=== PATIENT | female | born 1935 | race Caucasian/White ===

== ENCOUNTER 2020-07-13 01:40 | Inpatient (IN) | payer MEDICARE, SELFPAY ==
[2020-07-13 01:51] VITALS: BP 158/59; PULSE 70; RESP 16; TEMP 37; O2SAT 96; BMI 24.2
[2020-07-13] MEDS: Docusate Sodium 100 MG Capsule PO (05:04)
[2020-07-13] MEDS: Ezetimibe 10 MG Tablet PO (05:04)
[2020-07-13] MEDS: Lidocaine 5% Patch 2 PATCH TOPICAL (05:04)
[2020-07-13] MEDS: Lisinopril 5 MG Tablet PO (05:04)
[2020-07-13] MEDS: Pantoprazole Sodium 20 MG Tablet PO (05:04)
[2020-07-13] MEDS: Polyethylene Glycol 3350 17 GM PACKET PO (05:05)
[2020-07-13 05:43] LABS: Absolute Lymphocyte Count 2.19 X10^3/uL (0.83-4.51); Absolute Neutrophil Count 11.2 X10^3/uL (2.0-7.7); Basophil# 0.04 X10^3/uL; Basophil% 0.3 % (0-1); Eosinophil# 0.08 X10^3/uL; Eosinophils% 0.5 % (0-5); Hematocrit 32.9 % (37-47); Hemoglobin 10.6 g/dL (12.0-15.0); Lymphocyte # 2.19 X10^3/ul (4.0); Lymphocyte % 14.3 % (19-41); Mean Corp Hgb Conc 32.2 g/dL (32-36); Mean Corpuscular Hgb 31.3 pg (27.0-32.0); Mean Corpuscular Volume 97.1 fL (81-99); Monocyte# 1.55 X10^3/uL; Monocyte% 10.1 % (0-10); NRBC Flagged by Analyzer 0 % (0-5); Neutrophil # 11.23 X10^3/uL (2.7-7.7); Neutrophil % 73.4 % (47-70); POSITIVE DIFFERENTIAL YES; POSITIVE MORPHOLOGY YES; Platelet Count 642 K/mm3 (150-450); RBC Distribution Width CV 19.9 % (11.6-14.6); RBC Distribution Width SD 71.9 fl (35.1-43.9); Red Blood Count 3.39 M/mm3 (4.2-5.4); White Blood Count 15.3 K/mm3 (4.4-11.0)
[2020-07-13 05:50] LABS: Differential Indicated SCAN CRITERIA MET
[2020-07-13 06:11] LABS: Anion Gap 7 (5-15); BUN 24 mg/dL (7-18); BUN/Creat Ratio 34.2 RATIO (10-20); Calcium,Total 10.5 mg/dL (8.5-10.1); Chloride 102 mmol/L (98-107); EST Glomerular Filtration Rate 84 mL/min (>60); Est Glom Filt Rate - Afr Amer 102 mL/min (>60); Estimated Creatinine Clearance 30.08 ml/min; Glucose 111 mg/dL (74-106); Potassium 3.6 mmol/L (3.5-5.1); Sodium Level 134 mmol/L (136-145)
[2020-07-13] MEDS: Enoxaparin 40 MG/0.4 ML Syringe SC (06:51)
--- NOTE | 2020-07-13 08:09 | HP.PCM_ITS ---
Problem List (1) Debility Status: Acute (2) Fall Status: Acute (3) Closed right hip fracture Status: Acute (4) Closed nondisplaced fracture of fifth left metatarsal bone Status: Acute (5) Alzheimer disease Status: Chronic (6) GERD (gastroesophageal reflux disease) Status: Chronic (7) Chronic UTI Status: Chronic (8) Gout Status: Chronic (9) Hypertension Status: Chronic (10) Hyperlipidemia Status: Chronic (11) Vitamin D deficiency Status: Chronic History of Present Illness Date of Admission: 07/13/20 Chief Complaint: Here for rehabilitation, strengthening, prior to discharge to [facility]. 07/03/20 The patient is a 84 year old Female with below past medical history admitted to [facility] with fall, right hip pain. Right hip pain, back pain. X-ray showed closed left 5th metatarsal fracture. X-ray showed right hip fracture. Underwent surgical fixation right hip. Evaluation for elevated WBC, infection ruled out. Lovenox for DVT prophylaxis. Palliative consult ordered. Lovenox held for postoperative anemia. Leukocytosis, etiology unknown. 07/13/20 Admit to TCU with debility, here for rehabilitation, strengthening, prior to discharge to [facility]. Past Medical History Past Medical History (Chronic Problems): Chronic Problems Alzheimer disease (Chronic) GERD (gastroesophageal reflux disease) (Chronic) Chronic UTI (Chronic) Gout (Chronic) Hypertension (Chronic) Hyperlipidemia (Chronic) Vitamin D deficiency (Chronic) Allergies azithromycin Allergy (Verified 07/13/20 02:20) Swelling duloxetine [From Cymbalta] Allergy (Verified 07/13/20 02:20) PT UNABLE TO RESPOND-NEEDS F/U penicillin G Allergy (Verified 07/13/20 02:20) Swelling pregabalin Allergy (Verified 07/13/20 02:20) PT UNABLE TO RESPOND-NEEDS F/U sulfamethoxazole [From Bactrim] Allergy (Verified 07/13/20 02:20) Rash trimethoprim [From Bactrim] Allergy (Verified 07/13/20 02:20) Rash vaccine adjuvant system, AS01B liposomal [From Shingrix (PF)] Allergy (Verified 07/13/20 02:20) Rash varicella-zoster virus glycoprotein E, recombinant [From Shingrix (PF)] Allergy (Verified 07/13/20 02:20) Rash prednisone Adverse Reaction (Verified 07/13/20 02:20) PT UNABLE TO RESPOND-NEEDS F/U Home Medications: Ambulatory Orders Medication Instructions Recorded Allopurinol [Zyloprim] 300 mg PO DAILY 07/13/20 Calcium Carbonate/Vitamin D3 1 ea PO DAILY 07/13/20 [Calcium 500-Vit D3 200 Tablet] Cholecalciferol (Vitamin D3) 2,000 unit PO DAILY 07/13/20 [Vitamin D3] Docusate Sodium [Colace] 100 mg PO DAILY 07/13/20 Donepezil HCl [Aricept] 10 mg PO QHS 07/13/20 Enoxaparin Sodium [Lovenox] 40 mg SQ DAILY 07/13/20 Ezetimibe 10 mg PO DAILY 07/13/20 Lidocaine [Lidoderm Patch] 2 patch TOPICAL DAILY 07/13/20 Lisinopril 5 mg PO DAILY 07/13/20 Multivit-Min/Iron/Folic Acid/K 1 ea PO DAILY 07/13/20 [Multi-Day Plus Minerals Tablet] Omeprazole [Prilosec] 20 mg PO DAILY 07/13/20 Polyethylene Glycol 3350 [Miralax] 17 gm PO DAILY 07/13/20 proMETHazine tablet [Phenergan 25 mg PO Q12H PRN PRN 07/13/20 tablet] Surgical History: dilatation and curettage, total knee arthroplasty - Right., - - Left hand surgery, ORIF right hip. Psychiatric History: No pertinent psych hx CLINIC ADMINISTRATOR History: No pertinent CLINIC ADMINISTRATOR history Lives: Shelter - [facility]. Smoking Status: Never smoker Tobacco Use: Non-smoker Alcohol: None Drugs: None - *Family History Maternal History Items: No pertinent history Paternal History Items: No pertinent history Review of Systems Constitutional: Denies: Chills, Fever, Weight Change HEENT: Denies: Head Aches, Sinus Congestion, Sinus Drainage Cardiovascular: Denies: Chest Pain, Palpitations Respiratory: Denies: Cough, Shortness of breath at rest, Sputum production Gastrointestinal: Denies: Abdominal Pain, Nausea, Vomiting Genitourinary: Denies: Dysuria Musculoskeletal: Denies: Joint Pain, Joint Tenderness Skin: Denies: Rash, Wounds Neurological: Denies: Numbness, Tingling, Focal weakness Psychiatric: Denies: Anxiety, Depression, Homicidal Ideations, Suicidal Ideations Hematologic/ Lymphatic: Denies: Easy Bruising, Easy Bleeding VTE Information - Inpt Only VTE Present on Admission: No VTE Mechan Device Prophylaxis: Knee High CASSY Hose VTE Pharm Prophylaxis ordered?: Yes Patient Problems: Active and Suspected Problems Debility (Acute) Fall (Acute) Closed right hip fracture (Acute) Closed nondisplaced fracture of fifth left metatarsal bone (Acute) - Physical Exam Vitals/I&O's: Vital Signs Temp Pulse Resp BP Pulse Ox 98.6 F 70 16 158/59 H 96 07/13/20 01:51 07/13/20 01:51 07/13/20 01:51 07/13/20 01:51 07/13/20 01:51 Oxygen Delivery Method Room Air Weight: 56.3 kg Body Mass Index (BMI) 24.2 General: Alert, Oriented x3, Cooperative HEENT: Atraumatic, PERRLA, EOMI, Normocephalic Neck: Supple, No JVD, Negative Carotid Bruits Lungs: Clear to auscultation, Normal air movement Cardiovascular: Regular rate, No murmurs Abdomen: Bowel Sounds Present, Soft, Non Tender Extremities: No edema, Capillary Refill Less than 3 Seconds Skin: No rashes, No breakdown Musculoskeletal: No Tenderness to Palpation of Joints or Extremities Neurological: Cranial nerves II-XII grossly intact Psych/Mental Status: Normal Affect, Appropriate Laboratory Results 07/13/20 05:10: WBC 15.3 H, RBC 3.39 L, Hgb 10.6 L, Hct 32.9 L, MCV 97.1, MCH 31.3, MCHC 32.2, RDW Std Deviation 71.9 H, RDW Coeff of Karina 19.9 H, Plt Count 642 H, MPV 9.0, Immature Gran % (Auto) 1.400 H, Neut % (Auto) 73.4 H, Lymph % (Auto) 14.3 L, Wilson % (Auto) 10.1 H, Eos % (Auto) 0.5, Baso % (Auto) 0.3, Absolute Neuts (auto) 11.2 H, Absolute Lymphs (auto) 2.19, Nucleated RBC % 0, Diff Path Review December07/13/20 05:10: Sodium 134 L, Potassium 3.6, Chloride 102, Carbon Dioxide 25.0, Anion Gap 7, BUN 24 H, Creatinine 0.70, Estim Creat Clear Calc 30.08, Est GFR (MDRD) Af Amer 102, Est GFR (MDRD) Non-Af 84, BUN/Creatinine Ratio 34.2 H, Glucose 111 H, Calcium 10.5 H 07/13/20 07:00: COVID-19 (LINYD) Pending Current Medications Allopurinol (Allopurinol 300 Mg Tablet) 300 mg PO DAILY@0800 [facility] Calcium/Vitamin D (Calcium Carb/Vitamin D 1 Tablet Tablet) 1 tablet PO DAILY@0800 [facility] Cholecalciferol (Cholecalciferol (Vit D3) 1,000 Unit (25mcg)) 2,000 unit PO DAILY [facility] Last Admin: 07/13/20 05:04 Dose: 2,000 unit Documented by: Docusate Sodium (Docusate Sodium 100 Mg Capsule) 100 mg PO DAILY [facility] Last Admin: 07/13/20 05:04 Dose: 100 mg Documented by: Donepezil HCl (Donepezil Hcl 10 Mg Tablet) 10 mg PO QHS [facility] Ezetimibe (Ezetimibe 10 Mg Tablet) 10 mg PO DAILY [facility] Last Admin: 07/13/20 05:04 Dose: 10 mg Documented by: Enoxaparin Sodium (Enoxaparin 40 Mg/0.4 Ml Syringe) 40 mg SC DAILY [facility] Last Admin: 07/13/20 06:51 Dose: 40 mg Documented by: Lidocaine (Lidocaine 5% Patch) 2 patch TOPICAL DAILY [facility]; Protocol Last Admin: 07/13/20 05:04 Dose: 2 patch Documented by: Lisinopril (Lisinopril 5 Mg Tablet) 5 mg PO DAILY [facility] Last Admin: 07/13/20 05:04 Dose: 5 mg Documented by: Multivitamins/Minerals (Multivitamins,Ther W-Minerals Tablet) 1 tablet PO DAILY@0800 [facility] Nutritional Formula (Lactose Free) (Ensure Enlive 120 Ml Liquid) 120 ml PO 4X/DAY [facility] Last Admin: 07/13/20 05:04 Dose: 120 ml Documented by: Pantoprazole Sodium (Pantoprazole Sodium 20 Mg Tablet) 20 mg PO DAILY [facility] Last Admin: 07/13/20 05:04 Dose: 20 mg Documented by: Polyethylene Glycol (Polyethylene Glycol 3350 17 Gm Packet) 17 gm PO DAILY [facility] Last Admin: 07/13/20 05:05 Dose: 17 gm Documented by: Promethazine HCl (Promethazine 25 Mg Tablet) 25 mg PO Q12H PRN PRN PRN Reason: NAUSEA Tuberculin PPD (Tuberculin,Purif.Prot.Deriv. 50 Tu/Ml Vial) 5 tu ID X1 ONE Stop: 07/14/20 10:01 Tuberculin PPD (Tuberculin,Purif.Prot.Deriv. 50 Tu/Ml Vial) 5 tu ID X1 ONE Stop: 07/21/20 10:01 Assessment/Plan All Active Problems Debility (Acute) Fall (Acute) Closed right hip fracture (Acute) Closed nondisplaced fracture of fifth left metatarsal bone (Acute) 84 year old female with below past medical history hospitalized for right hip fracture, left 5th metatarsal fracture, underwent ORIF right hip fracture, complicated by leukocytosis, postoperative anemia, admitted to TCU with debility, here for rehabilitation, strengthening, prior to discharge to [facility]. * Debility - PT/OT. * Pain - Tylenol 1000MG Q6H PRN pain (1-5), Oxycodone 2.5MG Q4H PRN pain (6-10), Lidoderm patch 2 patches TD daily. * Bowel - Miralax 17GM daily, Senna/colace 1 tablet BID, MOM 30ML daily PRN, Dulcolax 10MG RI daily PRN. * Adult immunization - Administer Prevnar 13, Pneumovax 23, Fluzone as appropriate. * DVT prophylaxis - Lovenox 40MG SC daily. * Gout - Allopurinol 300MG daily. * Calcium deficiency - Calcium D 1 tablet daily. * Vitamin D deficiency - D3 2000IU daily. * Alzheimer Disease - Donepezil 10MG QHS. * Nutrition - MVI daily, Ensure Enlive 120ML 4x/day. * Hyperlipidemia - Zetia 10MG daily. * Hypertension - Lisinopril 5MG daily. * GERD - Pantoprazole 20MG daily. * Nausea - Phenergan 25MG Q12H PRN.
[2020-07-13] MEDS: Multivitamins,Ther W-Minerals Tablet 1 TABLET PO (08:37)
[2020-07-13] MEDS: Allopurinol 300 MG Tablet PO (08:37)
[2020-07-13] MEDS: Calcium Carb/Vitamin D 1 TABLET Tablet PO (08:37)
[2020-07-13] MEDS: proMETHazine 25 MG Tablet PO (08:49)
[2020-07-13] MEDS: Acetaminophen 500 MG Tablet 1000 MG PO ×2 (09:03→16:58)
[2020-07-13 09:55] VITALS: PULSE 68; RESP 16; O2SAT 98
[2020-07-13 13:40] VITALS: PULSE 85; RESP 196; TEMP 36.4
[2020-07-13 13:41] VITALS: BP 127/46; PULSE 85; RESP 16; TEMP 36.4; O2SAT 97
[2020-07-13 13:50] LABS: Pathologist Review Reviewed
--- NOTE | 2020-07-13 14:11 | NURSING ---
pt complained of right ear pain. reported to rn.
--- NOTE | 2020-07-13 14:12 | PCM.PN.RX ---
<Sol Lawrence - Last Filed: 07/13/20 14:12> Progress Note - Pharmacy Subjective: TCU Admission Objective: Allergies azithromycin Allergy (Verified 07/13/20 02:20) Swelling duloxetine [From Cymbalta] Allergy (Verified 07/13/20 02:20) PT UNABLE TO RESPOND-NEEDS F/U penicillin G Allergy (Verified 07/13/20 02:20) Swelling pregabalin Allergy (Verified 07/13/20 02:20) PT UNABLE TO RESPOND-NEEDS F/U sulfamethoxazole [From Bactrim] Allergy (Verified 07/13/20 02:20) Rash trimethoprim [From Bactrim] Allergy (Verified 07/13/20 02:20) Rash vaccine adjuvant system, AS01B liposomal [From Shingrix (PF)] Allergy (Verified 07/13/20 02:20) Rash varicella-zoster virus glycoprotein E, recombinant [From Shingrix (PF)] Allergy (Verified 07/13/20 02:20) Rash prednisone Adverse Reaction (Verified 07/13/20 02:20) PT UNABLE TO RESPOND-NEEDS F/U Current Medications Generic Name Dose Route Start Last Admin Trade Name Freq PRN Reason Stop Dose Admin Acetaminophen 1,000 mg 07/13/20 08:24 07/13/20 09:03 Acetaminophen 500 Mg Tablet PO 1,000 mg Q6H PRN Administration Pain Score 1-5 Allopurinol 300 mg 07/13/20 08:00 07/13/20 08:37 Allopurinol 300 Mg Tablet PO 300 mg DAILY@0800 REPLACED BY [facility] Administration Bisacodyl 10 mg 07/13/20 08:25 Bisacodyl 10 Mg Suppository RECTAL DAILY PRN Constipation Calamine/Phenol 1 applic 07/13/20 22:00 Menthol/Lanolin/Calamine/Znox 113 Gm Tube TOPICAL 0600,2200 REPLACED BY [facility] Protocol Calcium/Vitamin D 1 tablet 07/13/20 08:00 07/13/20 08:37 Calcium Carb/Vitamin D 1 Tablet Tablet PO 1 tablet DAILY@0800 [facility] Administration Cholecalciferol 2,000 unit 07/13/20 06:00 07/13/20 05:04 Cholecalciferol (Vit D3) 1,000 Unit (25mcg) PO 2,000 unit DAILY [facility] Administration Donepezil HCl 10 mg 07/13/20 22:00 Donepezil Hcl 10 Mg Tablet PO QHS [facility] Ezetimibe 10 mg 07/13/20 06:00 07/13/20 05:04 Ezetimibe 10 Mg Tablet PO 10 mg DAILY [facility] Administration Enoxaparin Sodium 40 mg 07/13/20 06:00 07/13/20 06:51 Enoxaparin 40 Mg/0.4 Ml Syringe SC 40 mg DAILY [facility] Administration Influenza Virus Vaccine Quadrival 0.5 ml 07/14/20 10:00 Influenza Vaccine (6mos+)/Pf 0.5 Ml Syringe IM 07/14/20 10:01 .ONCE ONE Lidocaine 2 patch 07/13/20 06:00 07/13/20 05:04 Lidocaine 5% Patch TOPICAL 2 patch DAILY REPLACED BY [facility] Administration Protocol Lisinopril 5 mg 07/13/20 06:00 07/13/20 05:04 Lisinopril 5 Mg Tablet PO 5 mg DAILY [facility] Administration Magnesium Hydroxide 30 ml 07/13/20 08:25 Magnesium Hydroxide 30 Ml Udc PO DAILY PRN Constipation Multivitamins/Minerals 1 tablet 07/13/20 08:00 07/13/20 08:37 Multivitamins,Ther W-Minerals Tablet PO 1 tablet DAILY@0800 REPLACED BY [facility] Administration Nutritional Formula (Lactose Free) 120 ml 07/13/20 06:00 07/13/20 12:06 Ensure Enlive 120 Ml Liquid PO 120 ml 4X/DAY REPLACED BY [facility] Administration Oxycodone HCl 2.5 mg 07/13/20 08:24 Oxycodone 5 Mg Tablet PO Q4H PRN PRN Pain Score 6-10 Pantoprazole Sodium 20 mg 07/13/20 06:00 07/13/20 05:04 Pantoprazole Sodium 20 Mg Tablet PO 20 mg DAILY REPLACED BY [facility] Administration Polyethylene Glycol 17 gm 07/13/20 06:00 07/13/20 05:05 Polyethylene Glycol 3350 17 Gm Packet PO 17 gm DAILY REPLACED BY [facility] Administration Promethazine HCl 25 mg 07/13/20 02:28 07/13/20 08:49 Promethazine 25 Mg Tablet PO 25 mg Q12H PRN PRN Administration NAUSEA Senna/Docusate Sodium 1 tablet 07/13/20 18:00 Senna/Docusate Sodium 1 Tablet PO BID REPLACED BY [facility] Tuberculin PPD 5 tu 07/14/20 10:00 Tuberculin,Purif.Prot.Deriv. 50 Tu/Ml Vial ID 07/14/20 10:01 X1 ONE Tuberculin PPD 5 tu 07/21/20 10:00 Tuberculin,Purif.Prot.Deriv. 50 Tu/Ml Vial ID 07/21/20 10:01 X1 ONE Problem List Debility (Acute) Fall (Acute) Closed right hip fracture (Acute) Closed nondisplaced fracture of fifth left metatarsal bone (Acute) Alzheimer disease (Chronic) GERD (gastroesophageal reflux disease) (Chronic) Chronic UTI (Chronic) Gout (Chronic) Hypertension (Chronic) Hyperlipidemia (Chronic) Vitamin D deficiency (Chronic) Vital Signs Temp Pulse Resp BP Pulse Ox 97.6 F L 85 16 127/46 H 97 07/13/20 13:41 07/13/20 13:41 07/13/20 13:41 07/13/20 13:41 07/13/20 13:41 Oxygen Delivery Method Room Air Weight: 56.3 kg Body Mass Index (BMI) 24.2 Sodium 134 mmol/L (136-145) L 07/13/20 05:10 Potassium 3.6 mmol/L (3.5-5.1) 07/13/20 05:10 Chloride 102 mmol/L (98-107) 07/13/20 05:10 Carbon Dioxide 25.0 mmol/L (21.0-32.0) 07/13/20 05:10 Anion Gap 7 (5-15) 07/13/20 05:10 BUN 24 mg/dL (7-18) H 07/13/20 05:10 Creatinine 0.70 mg/dL (0.55-1.02) 07/13/20 05:10 Est GFR (MDRD) Af Amer 102 mL/min (>60) 07/13/20 05:10 Est GFR (MDRD) Non-Af 84 mL/min (>60) 07/13/20 05:10 BUN/Creatinine Ratio 34.2 RATIO (10-20) H 07/13/20 05:10 Glucose 111 mg/dL (74-106) H 07/13/20 05:10 Assessment/Plan: 1. Pain: acetaminophen 1000mg PO Q6H PRN pain 1-5/10, oxycodone 2.5mg PO Q4H PRN pain 6-10/10, and lidocaine patch 2 patches topically daily. Please continue to monitor for increased pain and PRN usage. 2. DVT prophylaxis: enoxaparin 40mg SC daily. Please continue to monitor renal function, S/S of bleeding/DVT, hemoglobin and platelets. 3. Gout: allopurinol 300mg PO DAILYCM. Please continue to monitor for S/S of gout and renal function. 4. Alzheimer disease: donepezil 10mg PO QHS. Please continue to monitor for GI side effects and confusion. *5. Hyperlipidemia: ezetimibe 10mg PO daily. I did not see a lipid panel in the patient's chart. Please consider ordering a lipid panel if clinically appropriate. Thanks. 6. Hypertension: lisinopril 5mg P daily. Please continue to monitor renal function, potassium (last 3.6mmol/L), BP (last 127/46), and for cough. 7. GERD: pantoprazole 20mg PO daily. Please continue to monitor for S/S of GERD and diarrhea. 8. Nausea: promethazine 25mg PO Q12H PRN nausea. Please continue to monitor for nausea and PRN usage. *9. Overall nutrition/vitamin deficiency: multivitamin with minerals 1T PO DAILYCM, cholecalciferol 2000units PO daily, and calcium/vitamin D 1T PO DAILYCM. Please consider order a vitamin D level as there is no level in patient's chart. Please continue to monitor calcium levels. Thanks. Psychotropic Medications: None Unnecessary Medications: None Bowel Regimen: Miralax 17gm PO daily, senna/docusate 1T PO BID, MOM 30mL PO daily PRN constipation, and bisacodyl 10mg MD daily PRN constipation. Please continue to monitor for constipation and PRN usage. Date of Note:: 07/13/20 - Provider Comments Provider responsibility: Provider responsible to enter orders to implement recommendations <Alek Saab Chi - Last Filed: 07/13/20 17:35> Progress Note - Pharmacy Subjective: [] Objective: Allergies azithromycin Allergy (Verified 07/13/20 02:20) Swelling duloxetine [From Cymbalta] Allergy (Verified 07/13/20 02:20) PT UNABLE TO RESPOND-NEEDS F/U penicillin G Allergy (Verified 07/13/20 02:20) Swelling pregabalin Allergy (Verified 07/13/20 02:20) PT UNABLE TO RESPOND-NEEDS F/U sulfamethoxazole [From Bactrim] Allergy (Verified 07/13/20 02:20) Rash trimethoprim [From Bactrim] Allergy (Verified 07/13/20 02:20) Rash vaccine adjuvant system, AS01B liposomal [From Shingrix (PF)] Allergy (Verified 07/13/20 02:20) Rash varicella-zoster virus glycoprotein E, recombinant [From Shingrix (PF)] Allergy (Verified 07/13/20 02:20) Rash prednisone Adverse Reaction (Verified 07/13/20 02:20) PT UNABLE TO RESPOND-NEEDS F/U Current Medications Generic Name Dose Route Start Last Admin Trade Name Freq PRN Reason Stop Dose Admin Acetaminophen 1,000 mg 07/13/20 08:24 07/13/20 16:58 Acetaminophen 500 Mg Tablet PO 1,000 mg Q6H PRN Administration Pain Score 1-5 Allopurinol 300 mg 07/13/20 08:00 07/13/20 08:37 Allopurinol 300 Mg Tablet PO 300 mg DAILY@0800 REPLACED BY [facility] Administration Bisacodyl 10 mg 07/13/20 08:25 Bisacodyl 10 Mg Suppository RECTAL DAILY PRN Constipation Calamine/Phenol 1 applic 07/13/20 22:00 Menthol/Lanolin/Calamine/Znox 113 Gm Tube TOPICAL 0600,2200 REPLACED BY [facility] Protocol Calcium/Vitamin D 1 tablet 07/13/20 08:00 07/13/20 08:37 Calcium Carb/Vitamin D 1 Tablet Tablet PO 1 tablet DAILY@0800 [facility] Administration Cholecalciferol 2,000 unit 07/13/20 06:00 07/13/20 05:04 Cholecalciferol (Vit D3) 1,000 Unit (25mcg) PO 2,000 unit DAILY [facility] Administration Donepezil HCl 10 mg 07/13/20 22:00 Donepezil Hcl 10 Mg Tablet PO QHS REPLACED BY [facility] Ezetimibe 10 mg 07/13/20 06:00 07/13/20 05:04 Ezetimibe 10 Mg Tablet PO 10 mg DAILY [facility] Administration Enoxaparin Sodium 40 mg 07/13/20 06:00 07/13/20 06:51 Enoxaparin 40 Mg/0.4 Ml Syringe SC 40 mg DAILY [facility] Administration Influenza Virus Vaccine Quadrival 0.5 ml 07/14/20 10:00 Influenza Vaccine (6mos+)/Pf 0.5 Ml Syringe IM 07/14/20 10:01 .ONCE ONE Lidocaine 2 patch 07/13/20 06:00 07/13/20 05:04 Lidocaine 5% Patch TOPICAL 2 patch DAILY [facility] Administration Protocol Lisinopril 5 mg 07/13/20 06:00 07/13/20 05:04 Lisinopril 5 Mg Tablet PO 5 mg DAILY [facility] Administration Magnesium Hydroxide 30 ml 07/13/20 08:25 Magnesium Hydroxide 30 Ml Udc PO DAILY PRN Constipation Multivitamins/Minerals 1 tablet 07/13/20 08:00 07/13/20 08:37 Multivitamins,Ther W-Minerals Tablet PO 1 tablet DAILY@0800 [facility] Administration Nutritional Formula (Lactose Free) 120 ml 07/13/20 06:00 07/13/20 16:54 Ensure Enlive 120 Ml Liquid PO 120 ml 4X/DAY [facility] Administration Oxycodone HCl 2.5 mg 07/13/20 08:24 Oxycodone 5 Mg Tablet PO Q4H PRN PRN Pain Score 6-10 Pantoprazole Sodium 20 mg 07/13/20 06:00 07/13/20 05:04 Pantoprazole Sodium 20 Mg Tablet PO 20 mg DAILY [facility] Administration Polyethylene Glycol 17 gm 07/13/20 06:00 07/13/20 05:05 Polyethylene Glycol 3350 17 Gm Packet PO 17 gm DAILY [facility] Administration Promethazine HCl 25 mg 07/13/20 02:28 07/13/20 08:49 Promethazine 25 Mg Tablet PO 25 mg Q12H PRN PRN Administration NAUSEA Senna/Docusate Sodium 1 tablet 07/13/20 18:00 07/13/20 16:54 Senna/Docusate Sodium 1 Tablet PO 1 tablet BID [facility] Administration Tuberculin PPD 5 tu 07/14/20 10:00 Tuberculin,Purif.Prot.Deriv. 50 Tu/Ml Vial ID 07/14/20 10:01 X1 ONE Tuberculin PPD 5 tu 07/21/20 10:00 Tuberculin,Purif.Prot.Deriv. 50 Tu/Ml Vial ID 07/21/20 10:01 X1 ONE Problem List Debility (Acute) Fall (Acute) Closed right hip fracture (Acute) Closed nondisplaced fracture of fifth left metatarsal bone (Acute) Alzheimer disease (Chronic) GERD (gastroesophageal reflux disease) (Chronic) Chronic UTI (Chronic) Gout (Chronic) Hypertension (Chronic) Hyperlipidemia (Chronic) Vitamin D deficiency (Chronic) Vital Signs Temp Pulse Resp BP Pulse Ox 97.6 F L 85 16 127/46 H 97 07/13/20 13:41 07/13/20 13:41 07/13/20 13:41 07/13/20 13:41 07/13/20 13:41 Oxygen Delivery Method Room Air Weight: 56.3 kg Body Mass Index (BMI) 24.2 Sodium 134 mmol/L (136-145) L 07/13/20 05:10 Potassium 3.6 mmol/L (3.5-5.1) 07/13/20 05:10 Chloride 102 mmol/L (98-107) 07/13/20 05:10 Carbon Dioxide 25.0 mmol/L (21.0-32.0) 07/13/20 05:10 Anion Gap 7 (5-15) 07/13/20 05:10 BUN 24 mg/dL (7-18) H 07/13/20 05:10 Creatinine 0.70 mg/dL (0.55-1.02) 07/13/20 05:10 Est GFR (MDRD) Af Amer 102 mL/min (>60) 07/13/20 05:10 Est GFR (MDRD) Non-Af 84 mL/min (>60) 07/13/20 05:10 BUN/Creatinine Ratio 34.2 RATIO (10-20) H 07/13/20 05:10 Glucose 111 mg/dL (74-106) H 07/13/20 05:10 Assessment/Plan: Psychotropic Medications: Unnecessary Medications: Bowel Regimen: - Provider Comments Provider responsibility: Provider responsible to enter orders to implement recommendations Provider Comments to Recommendations by Pharmacy: Agree
[2020-07-13] MEDS: Senna/Docusate Sodium 1 Tablet PO (16:54)
[2020-07-13] MEDS: Donepezil HCl 10 MG Tablet PO (20:54)
[2020-07-13] MEDS: Menthol/Lanolin/Calamine/Znox 113 GM Tube 1 APPLIC TOPICAL (20:55)
[2020-07-14 05:36] VITALS: BP 109/49; PULSE 84; RESP 16; TEMP 36.4; O2SAT 94
[2020-07-14] MEDS: Menthol/Lanolin/Calamine/Znox 113 GM Tube 1 APPLIC TOPICAL ×2 (05:38→22:10)
[2020-07-14] MEDS: Pantoprazole Sodium 20 MG Tablet PO (05:41)
[2020-07-14] MEDS: Senna/Docusate Sodium 1 Tablet PO ×2 (05:41→16:51)
[2020-07-14] MEDS: Enoxaparin 40 MG/0.4 ML Syringe SC (05:41)
[2020-07-14] MEDS: Ezetimibe 10 MG Tablet PO (05:41)
[2020-07-14] MEDS: Polyethylene Glycol 3350 17 GM PACKET PO (05:41)
[2020-07-14] MEDS: Lisinopril 5 MG Tablet PO (05:41)
[2020-07-14] MEDS: Lidocaine 5% Patch 2 PATCH TOPICAL (05:45)
[2020-07-14] MEDS: Multivitamins,Ther W-Minerals Tablet 1 TABLET PO (08:41)
[2020-07-14] MEDS: Calcium Carb/Vitamin D 1 TABLET Tablet PO (08:41)
[2020-07-14] MEDS: Allopurinol 300 MG Tablet PO (08:41)
[2020-07-14] MEDS: oxyCODONE 5 MG Tablet 2.5 MG PO (08:43)
[2020-07-14] MEDS: Tuberculin,Purif.prot.deriv. 50 TU/ML Vial 5 ML ID (11:44)
--- NOTE | 2020-07-14 12:01 | NURSING ---
Spoke with daughter today. Pt. Stated she had flu shot this year already. Confirmed with daughter that she did have the flu shot was unaware of the date but received it from the assisted living.
[2020-07-14] MEDS: Acetaminophen 500 MG Tablet 1000 MG PO (13:17)
[2020-07-14 13:43] VITALS: BP 107/43; PULSE 93; RESP 16; TEMP 36.4; O2SAT 95
--- NOTE | 2020-07-14 15:00 | CASEMGMT ---
Social Work Completed initial assessment with pt but she believes it is 1936 and unsure if answers are accurate. Contacted son whom corrected information, but stated the basket person will be his sister Chichi who is POA. Contacted Chichi whom explained pt's information further. Pt lived at [facility] [place] at [facility] in [place] but has ran out of money and family has applied for Medicaid and Passport through [facility]. Offered to assist as needed and to provided LINDEN pending number and/or Passport C.M. once assigned. Pt will be discharging to other dtr's, [facility], however, it requires some modifications for pt to live there safely. It is a two story home, 1/2 bath on first floor, full bath on 2nd floor and finished basement, and there are 3 steps to enter. The goal is for LINDEN to build a ramp and get other DME. Pt will need PCP at DC as she used DC's PCP. Offered to assist with that as well. Chichi state she is POA and requested to email those documents to to place in pt's chart - she agreed. Explained insurance and continued stay is not guaranteed with each review. Will continue to follow and assist with DC plans. ALOK Barraza
--- NOTE | 2020-07-14 15:31 | NURSING ---
Resident and family notified of staff members testing positive for COVID
[2020-07-14] MEDS: Donepezil HCl 10 MG Tablet PO (22:07)
[2020-07-15 04:00] VITALS: BP 107/48; PULSE 82; RESP 16; TEMP 36.9; O2SAT 95
[2020-07-15] MEDS: Lidocaine 5% Patch 2 PATCH TOPICAL (06:16)
[2020-07-15] MEDS: Ezetimibe 10 MG Tablet PO (06:17)
[2020-07-15] MEDS: Enoxaparin 40 MG/0.4 ML Syringe SC (06:17)
[2020-07-15] MEDS: Pantoprazole Sodium 20 MG Tablet PO (06:17)
[2020-07-15] MEDS: Lisinopril 5 MG Tablet PO (06:17)
[2020-07-15] MEDS: Senna/Docusate Sodium 1 Tablet PO ×2 (06:17→18:37)
[2020-07-15] MEDS: Polyethylene Glycol 3350 17 GM PACKET PO (06:21)
[2020-07-15] MEDS: Menthol/Lanolin/Calamine/Znox 113 GM Tube 1 APPLIC TOPICAL ×2 (06:21→20:45)
[2020-07-15] MEDS: oxyCODONE 5 MG Tablet 2.5 MG PO ×2 (08:06→23:27)
[2020-07-15] MEDS: Multivitamins,Ther W-Minerals Tablet 1 TABLET PO (08:07)
[2020-07-15] MEDS: Allopurinol 300 MG Tablet PO (08:07)
--- NOTE | 2020-07-15 08:09 | NURSING ---
Noted calcium level 10.5, Os jackie held this morning and reported to Dr. Saab. Os jackie d/c'd at this time
[2020-07-15] MEDS: Acetaminophen 500 MG Tablet 1000 MG PO ×2 (09:56→18:45)
[2020-07-15 11:36] VITALS: PULSE 75; RESP 16; O2SAT 94
[2020-07-15] MEDS: Magnesium Hydroxide 30 ML UDC PO (13:21)
[2020-07-15 13:47] VITALS: BP 94/52; PULSE 80; RESP 17; TEMP 36.7; O2SAT 96
--- NOTE | 2020-07-15 17:04 | NURSING ---
Called Dr. Parson office today to schedule 3 week appt.. Scheduling stated that she did not have her ORIF done by Dr. Alexander or seen for her foot by him. She then stated that Dr. Raymond did her Hip surgery but was unable to confirm that. She stated she would do some digging and call me back. I didn't receive a call back from her. Will recall Dr. Raymond's office on Saturday to see if he did her ORIF.
--- NOTE | 2020-07-15 18:48 | NURSING ---
Pt c/o of not feeling well [place] short of breath. BP 98/61 left arm Spo2 96 RA pulse 85 RR 18. When asked pt where she was having pain she stated she had a Headache gave PRN Tylenol. Pt hasn't had bowel movement since 07/11 gave PRN Milk of Mag this shift has not been effective. Also, gave pt her PM dose of Senokot and warm Prune Juice. Will continue to monitor.
[2020-07-15] MEDS: Donepezil HCl 10 MG Tablet PO (20:46)
[2020-07-16 05:31] VITALS: BP 108/59; PULSE 77; RESP 16; TEMP 36.4; O2SAT 95
[2020-07-16] MEDS: Enoxaparin 40 MG/0.4 ML Syringe SC (05:33)
[2020-07-16] MEDS: Polyethylene Glycol 3350 17 GM PACKET PO (05:33)
[2020-07-16] MEDS: Lidocaine 5% Patch 2 PATCH TOPICAL (05:35)
[2020-07-16] MEDS: Menthol/Lanolin/Calamine/Znox 113 GM Tube 1 APPLIC TOPICAL ×2 (05:38→20:27)
[2020-07-16] MEDS: Lisinopril 5 MG Tablet PO (05:38)
[2020-07-16] MEDS: Senna/Docusate Sodium 1 Tablet PO ×2 (05:38→17:15)
[2020-07-16] MEDS: Pantoprazole Sodium 20 MG Tablet PO (05:38)
[2020-07-16] MEDS: Ezetimibe 10 MG Tablet PO (05:38)
[2020-07-16] MEDS: oxyCODONE 5 MG Tablet 2.5 MG PO (08:52)
[2020-07-16] MEDS: Allopurinol 300 MG Tablet PO (08:53)
[2020-07-16] MEDS: Acetaminophen 500 MG Tablet 1000 MG PO ×2 (08:53→20:27)
[2020-07-16] MEDS: Multivitamins,Ther W-Minerals Tablet 1 TABLET PO (08:53)
[2020-07-16 13:19] VITALS: BP 134/57; PULSE 83; RESP 16; TEMP 36.4; O2SAT 97
[2020-07-16] MEDS: Donepezil HCl 10 MG Tablet PO (20:27)
[2020-07-17 01:57] VITALS: BP 112/44; PULSE 79; RESP 16; TEMP 36.6; O2SAT 94
[2020-07-17] MEDS: Enoxaparin 40 MG/0.4 ML Syringe SC (05:03)
[2020-07-17] MEDS: Lisinopril 5 MG Tablet PO (05:03)
[2020-07-17] MEDS: Pantoprazole Sodium 20 MG Tablet PO (05:03)
[2020-07-17] MEDS: Ezetimibe 10 MG Tablet PO (05:03)
[2020-07-17] MEDS: Acetaminophen 500 MG Tablet 1000 MG PO (05:03)
[2020-07-17] MEDS: Senna/Docusate Sodium 1 Tablet PO ×2 (05:03→17:28)
[2020-07-17] MEDS: Polyethylene Glycol 3350 17 GM PACKET PO (05:03)
[2020-07-17] MEDS: Lidocaine 5% Patch 2 PATCH TOPICAL (05:04)
[2020-07-17] MEDS: Menthol/Lanolin/Calamine/Znox 113 GM Tube 1 APPLIC TOPICAL ×2 (05:04→19:55)
[2020-07-17] MEDS: Multivitamins,Ther W-Minerals Tablet 1 TABLET PO (07:54)
[2020-07-17] MEDS: Allopurinol 300 MG Tablet PO (07:54)
[2020-07-17 10:00] VITALS: PULSE 80; RESP 18; O2SAT 94
[2020-07-17 13:56] VITALS: BP 98/76; PULSE 92; RESP 16; TEMP 36.6; O2SAT 96
[2020-07-17] MEDS: Donepezil HCl 10 MG Tablet PO (19:55)
[2020-07-17] MEDS: oxyCODONE 5 MG Tablet 2.5 MG PO (23:33)
--- NOTE | 2020-07-17 23:49 | NURSING ---
2330- Pt yelling and asking to go home. Reoriented several times. Assisted to restroom to void. Pt c/o pain in R hip. OxyIR administered per orders. Bed alarm on and functioning. Call light within reach.
[2020-07-18 01:36] VITALS: BP 135/56; PULSE 81; RESP 16; TEMP 36.9; O2SAT 93
[2020-07-18] MEDS: Polyethylene Glycol 3350 17 GM PACKET PO (04:59)
[2020-07-18] MEDS: Ezetimibe 10 MG Tablet PO (05:00)
[2020-07-18] MEDS: Pantoprazole Sodium 20 MG Tablet PO (05:00)
[2020-07-18] MEDS: Lisinopril 5 MG Tablet PO (05:00)
[2020-07-18] MEDS: Enoxaparin 40 MG/0.4 ML Syringe SC (05:00)
[2020-07-18] MEDS: Menthol/Lanolin/Calamine/Znox 113 GM Tube 1 APPLIC TOPICAL ×2 (05:01→19:50)
[2020-07-18] MEDS: Lidocaine 5% Patch 2 PATCH TOPICAL (05:01)
[2020-07-18] MEDS: Senna/Docusate Sodium 1 Tablet PO ×2 (05:01→17:18)
[2020-07-18] MEDS: Allopurinol 300 MG Tablet PO (08:57)
[2020-07-18] MEDS: Multivitamins,Ther W-Minerals Tablet 1 TABLET PO (08:57)
[2020-07-18] MEDS: oxyCODONE 5 MG Tablet 2.5 MG PO (09:02)
[2020-07-18 13:59] VITALS: BP 113/39; PULSE 85; RESP 16; TEMP 37.1; O2SAT 94
[2020-07-18] MEDS: Donepezil HCl 10 MG Tablet PO (19:46)
[2020-07-19 04:00] VITALS: BP 101/65; PULSE 95; RESP 18; TEMP 36.6; O2SAT 96
[2020-07-19] MEDS: Lisinopril 5 MG Tablet PO (05:16)
[2020-07-19] MEDS: Pantoprazole Sodium 20 MG Tablet PO (05:16)
[2020-07-19] MEDS: Senna/Docusate Sodium 1 Tablet PO ×2 (05:16→17:38)
[2020-07-19] MEDS: Enoxaparin 40 MG/0.4 ML Syringe SC (05:16)
[2020-07-19] MEDS: Ezetimibe 10 MG Tablet PO (05:16)
[2020-07-19] MEDS: Lidocaine 5% Patch 2 PATCH TOPICAL (05:16)
[2020-07-19] MEDS: Polyethylene Glycol 3350 17 GM PACKET PO (05:17)
[2020-07-19] MEDS: Menthol/Lanolin/Calamine/Znox 113 GM Tube 1 APPLIC TOPICAL ×2 (05:25→19:46)
[2020-07-19] MEDS: Allopurinol 300 MG Tablet PO (09:10)
[2020-07-19] MEDS: Multivitamins,Ther W-Minerals Tablet 1 TABLET PO (09:15)
[2020-07-19] MEDS: oxyCODONE 5 MG Tablet 2.5 MG PO ×2 (09:24→16:28)
[2020-07-19] MEDS: Acetaminophen 500 MG Tablet 1000 MG PO (11:54)
[2020-07-19 12:24] VITALS: PULSE 86; RESP 18; O2SAT 96
[2020-07-19 14:25] VITALS: BP 105/30; PULSE 95; RESP 16; TEMP 37.1; O2SAT 99
[2020-07-19] MEDS: Donepezil HCl 10 MG Tablet PO (19:46)
[2020-07-20 04:00] VITALS: BP 113/52; PULSE 84; RESP 16; TEMP 36.8; O2SAT 93
[2020-07-20 05:14] LABS: Absolute Lymphocyte Count 3.65 X10^3/uL (0.83-4.51); Absolute Neutrophil Count 7.9 X10^3/uL (2.0-7.7); Basophil# 0.06 X10^3/uL; Basophil% 0.4 % (0-1); Eosinophil# 0.25 X10^3/uL; Eosinophils% 1.9 % (0-5); Hematocrit 31.7 % (37-47); Hemoglobin 9.8 g/dL (12.0-15.0); Lymphocyte # 3.65 X10^3/ul (4.0); Lymphocyte % 27.3 % (19-41); Mean Corp Hgb Conc 30.9 g/dL (32-36); Mean Corpuscular Hgb 31.1 pg (27.0-32.0); Mean Corpuscular Volume 100.6 fL (81-99); Mean Platelet Vol. 9.3 fl (6.2-12.0); Monocyte# 1.41 X10^3/uL; Monocyte% 10.6 % (0-10); NRBC Flagged by Analyzer 0 % (0-5); Neutrophil # 7.93 X10^3/uL (2.7-7.7); Neutrophil % 59.4 % (47-70); POSITIVE MORPHOLOGY YES; Platelet Count 508 K/mm3 (150-450); RBC Distribution Width CV 19.5 % (11.6-14.6); RBC Distribution Width SD 73.8 fl (35.1-43.9); Red Blood Count 3.15 M/mm3 (4.2-5.4); White Blood Count 13.4 K/mm3 (4.4-11.0)
[2020-07-20 05:15] LABS: Differential Indicated SCAN CRITERIA MET
[2020-07-20 05:31] LABS: Anion Gap 5 (5-15); BUN 50 mg/dL (7-18); BUN/Creat Ratio 41.3 RATIO (10-20); Calcium,Total 11.4 mg/dL (8.5-10.1); Chloride 100 mmol/L (98-107); Creatinine, Serum 1.21 mg/dL (0.55-1.02); EST Glomerular Filtration Rate 45 mL/min (>60); Est Glom Filt Rate - Afr Amer 54 mL/min (>60); Estimated Creatinine Clearance 24.86 ml/min; Glucose 108 mg/dL (74-106); Potassium 4.5 mmol/L (3.5-5.1); Sodium Level 135 mmol/L (136-145)
[2020-07-20 05:41] LABS: Differential Comment SCANNED
[2020-07-20] MEDS: Polyethylene Glycol 3350 17 GM PACKET PO (05:41)
[2020-07-20] MEDS: Lidocaine 5% Patch 2 PATCH TOPICAL (05:41)
[2020-07-20 05:42] LABS: Anisocytosis 1+; Macrocytosis 1+
[2020-07-20] MEDS: Ezetimibe 10 MG Tablet PO (05:42)
[2020-07-20] MEDS: Lisinopril 5 MG Tablet PO (05:42)
[2020-07-20] MEDS: Pantoprazole Sodium 20 MG Tablet PO (05:42)
[2020-07-20] MEDS: Senna/Docusate Sodium 1 Tablet PO ×2 (05:42→18:01)
[2020-07-20] MEDS: Enoxaparin 40 MG/0.4 ML Syringe SC (05:42)
[2020-07-20 05:43] LABS: Stomatocyte RARE
[2020-07-20] MEDS: Menthol/Lanolin/Calamine/Znox 113 GM Tube 1 APPLIC TOPICAL ×2 (05:44→21:28)
[2020-07-20] MEDS: Allopurinol 300 MG Tablet PO (08:54)
[2020-07-20] MEDS: Multivitamins,Ther W-Minerals Tablet 1 TABLET PO (08:54)
[2020-07-20] MEDS: oxyCODONE 5 MG Tablet 2.5 MG PO ×2 (08:55→21:26)
--- NOTE | 2020-07-20 11:26 | PCA ---
Left a message with Honey again with Dr. Parson office regarding scheduling a post op appointment. Office states they scheduled her appointment for 07/18/20 and called [phone] to let us know and the phone only rang. They marked her as a no show for 07/18/20. RN aware
[2020-07-20] MEDS: Acetaminophen 500 MG Tablet 1000 MG PO (12:25)
--- NOTE | 2020-07-20 14:38 | CASEMGMT ---
Addendum entered by Albertina Spivey 07/20/20 15:43: Received Medicaid Pending #[id number]. JFS awaiting documents from verification list to further process the application. Contacted dtr and relayed information to her. Offered to continue to assist. Will continue to follow. Original Note: Social Work IDT met with patient and dtr via conference call for care plan meeting. Discussed patient's progress in therapy. Pt is min for bed mobility, min-mod for tx and to ambulate 15 ft with FWW. Pt is mod for toilet tx, max for toileting tasks, mod for bathing, total for LE dressing, min for UE dressing, grooming is supervised, seated with cues. Pt's cognition is more limiting than physical factors, the therapists noted. ST is working with pt on memory, recall, orientation. Pt has forgetfulness within seconds of receiving the information, and needs cues for staying on task. Pt is on a [facility] soft/thin diet, sips via straw, and distant supervision with meals. Needs cues to remember to keep eating. Pt's intake is variable, receiving magic cup, ensure and med pass. Pt is out of room isolation 07/27. [facility] with NRD 07/21 with EDC 07/30. The goal is for pt to DC to dtr's house. IDT recommending 04/03 supervision. Dtr stated they have applied for LINDEN/Waiver, but unsure of status. Emailed list of nonskilled HHC to dtr as cautioned LINDEN may take time to get into place and the pt still needs assistance at DC prior to LINDEN active. Contacted JFS to get update on pt's status. Will await outcome. Provided Alzheimer's [employer] support group information to dtr as well. Will continue to follow. Albertina Spivey, ALOK BIBLE WORKER
[2020-07-20 15:28] VITALS: BP 92/50; PULSE 90; RESP 16; TEMP 36.8; O2SAT 94
[2020-07-20 17:00] VITALS: BP 77/34
--- NOTE | 2020-07-20 17:02 | NURSING ---
Addendum entered by Albina Zhu 07/20/20 19:04: Pt pullled spike out of NS IV bag and wasted 134.2ml of fluid on to the floor. BP rechecked 114/47 will continue to monitor. Original Note: Pt was found sitting on the edge of chair very confused. Took pt Blood pressure 77/[address] Saab made aware order for NS bolus and d/c Lisinopril. Recheck BP when bolus finished.
[2020-07-20] MEDS: 0.9% Normal Saline 1,000 ML 999 ML IV (17:28)
[2020-07-20 19:07] VITALS: BP 114/47; PULSE 83
[2020-07-20 21:23] VITALS: BP 118/48; PULSE 81; RESP 16; O2SAT 97
[2020-07-20] MEDS: Mirtazapine 15 MG Tablet 7.5 MG PO (21:27)
[2020-07-20] MEDS: Donepezil HCl 10 MG Tablet PO (21:29)
--- NOTE | 2020-07-20 21:37 | NURSING ---
lying quietly in bed, facial grimacing, med for pain, pt had removed wrapping over sl rac, cloth sleeve applied
[2020-07-21 04:00] VITALS: BP 134/66; PULSE 80; RESP 18; TEMP 37.1; O2SAT 95
[2020-07-21] MEDS: Enoxaparin 30 MG/0.3 ML Syringe SC (05:52)
[2020-07-21] MEDS: Lidocaine 5% Patch 2 PATCH TOPICAL (05:52)
[2020-07-21] MEDS: Pantoprazole Sodium 20 MG Tablet PO (05:53)
[2020-07-21] MEDS: Polyethylene Glycol 3350 17 GM PACKET PO (05:53)
[2020-07-21] MEDS: Ezetimibe 10 MG Tablet PO (05:53)
[2020-07-21] MEDS: Senna/Docusate Sodium 1 Tablet PO ×2 (05:53→17:19)
[2020-07-21] MEDS: Menthol/Lanolin/Calamine/Znox 113 GM Tube 1 APPLIC TOPICAL ×2 (05:59→21:36)
[2020-07-21] MEDS: Multivitamins,Ther W-Minerals Tablet 1 TABLET PO (08:15)
[2020-07-21] MEDS: Allopurinol 300 MG Tablet PO (08:15)
[2020-07-21] MEDS: Tuberculin,Purif.prot.deriv. 50 TU/ML Vial 5 ML ID (11:10)
[2020-07-21 11:18] VITALS: PULSE 89; RESP 16; O2SAT 96
[2020-07-21 14:18] VITALS: BP 92/38; PULSE 79; RESP 16; TEMP 36.3; O2SAT 94
--- NOTE | 2020-07-21 15:08 | NURSING ---
updated Chichi daughter regarding follow up after hip surgery w/dr Alexander on 08/03 @ [phone]. daughter will picking table worker at 0930.
[2020-07-21] MEDS: Dext 5%-0.45% NS 1,000 ML 60 ML IV (18:08)
[2020-07-21] MEDS: 0.9% Saline Lock 10 ML Syringe IV (18:08)
[2020-07-21] MEDS: Donepezil HCl 10 MG Tablet PO (21:35)
[2020-07-21] MEDS: oxyCODONE 5 MG Tablet 2.5 MG PO (21:35)
[2020-07-21] MEDS: Mirtazapine 15 MG Tablet 7.5 MG PO (21:35)
[2020-07-22 04:00] VITALS: BP 125/47; PULSE 81; RESP 16; TEMP 36.7; O2SAT 95
[2020-07-22] MEDS: Polyethylene Glycol 3350 17 GM PACKET PO (06:10)
[2020-07-22] MEDS: Lidocaine 5% Patch 2 PATCH TOPICAL (06:10)
[2020-07-22] MEDS: Senna/Docusate Sodium 1 Tablet PO ×2 (06:11→17:05)
[2020-07-22] MEDS: Ezetimibe 10 MG Tablet PO (06:11)
[2020-07-22] MEDS: Pantoprazole Sodium 20 MG Tablet PO (06:11)
[2020-07-22] MEDS: Enoxaparin 30 MG/0.3 ML Syringe SC (06:11)
[2020-07-22] MEDS: Menthol/Lanolin/Calamine/Znox 113 GM Tube 1 APPLIC TOPICAL ×2 (06:15→21:58)
[2020-07-22] MEDS: Allopurinol 300 MG Tablet PO (08:35)
[2020-07-22] MEDS: Multivitamins,Ther W-Minerals Tablet 1 TABLET PO (08:35)
[2020-07-22] MEDS: Dext 5%-0.45% NS 1,000 ML 60 ML IV (11:25)
[2020-07-22 14:42] VITALS: BP 90/52; PULSE 80; RESP 14; TEMP 36.4; O2SAT 95
[2020-07-22 16:14] LABS: Mucous, Urine 0 SEEN /hpf (<or=2+); Squamous Epithelial Cells - UA 0 SEEN /hpf (5-10)
[2020-07-22 16:18] LABS: Color, Urine Yellow (Yellow); Glucose, Dipstick Normal (Normal); Ketone-Dipstick Negative (Negative); Leukocyte Esterase-Dipstick 500 /ul (Negative); Nitrite-Dipstick Negative (Negative); Occult Blood-Urine 25 /ul (Negative); Protein-Dipstick 30 mg/dl (Negative); Urine Bilirubin Dipstick Negative (Negative); Urine Clarity Cloudy (Clear); Urine Urobilinogen Normal (Normal)
[2020-07-22 16:48] LABS: Bacteria 2+ /hpf (None Seen); White Blood Cells >100 SEEN /hpf (0-5)
[2020-07-22 16:49] LABS: Red Blood Cells-Urine 0-5 SEEN /hpf (0-5)
[2020-07-22] MEDS: oxyCODONE 5 MG Tablet 2.5 MG PO (17:03)
[2020-07-22] MEDS: Mirtazapine 15 MG Tablet 7.5 MG PO (21:49)
[2020-07-22] MEDS: Donepezil HCl 10 MG Tablet PO (21:50)
[2020-07-22] MEDS: Ciprofloxacin 250 MG Tablet PO (21:56)
[2020-07-23] MEDS: Dext 5%-0.45% NS 1,000 ML 60 ML IV ×2 (04:13→23:26)
[2020-07-23 04:16] VITALS: BP 131/55; PULSE 107; RESP 18; TEMP 36.8; O2SAT 93
[2020-07-23] MEDS: Polyethylene Glycol 3350 17 GM PACKET PO (04:21)
[2020-07-23] MEDS: Enoxaparin 30 MG/0.3 ML Syringe SC (04:21)
[2020-07-23] MEDS: Pantoprazole Sodium 20 MG Tablet PO (04:21)
[2020-07-23] MEDS: Ciprofloxacin 250 MG Tablet PO ×2 (04:22→16:55)
[2020-07-23] MEDS: Ezetimibe 10 MG Tablet PO (04:22)
[2020-07-23] MEDS: Senna/Docusate Sodium 1 Tablet PO ×2 (04:22→16:55)
[2020-07-23] MEDS: Menthol/Lanolin/Calamine/Znox 113 GM Tube 1 APPLIC TOPICAL ×2 (04:31→21:59)
[2020-07-23] MEDS: Lidocaine 5% Patch 2 PATCH TOPICAL (04:32)
[2020-07-23] MEDS: Multivitamins,Ther W-Minerals Tablet 1 TABLET PO (08:01)
[2020-07-23] MEDS: Allopurinol 300 MG Tablet PO (08:01)
[2020-07-23 10:22] VITALS: PULSE 100; RESP 16; O2SAT 96
[2020-07-23 16:33] VITALS: BP 123/76; PULSE 95; RESP 20; TEMP 36.7; O2SAT 96
[2020-07-23] MEDS: Mirtazapine 15 MG Tablet 7.5 MG PO (21:56)
[2020-07-23] MEDS: Donepezil HCl 10 MG Tablet PO (21:58)
--- NOTE | 2020-07-23 22:56 | NURSING ---
Attempted x4 to start iv, unsuccessful. Will have another RN try.
[2020-07-24 05:21] VITALS: BP 137/68; PULSE 110; RESP 18; TEMP 36.8; O2SAT 94
[2020-07-24] MEDS: Polyethylene Glycol 3350 17 GM PACKET PO (05:21)
[2020-07-24] MEDS: Enoxaparin 30 MG/0.3 ML Syringe SC (05:21)
[2020-07-24] MEDS: Ezetimibe 10 MG Tablet PO (05:22)
[2020-07-24] MEDS: Pantoprazole Sodium 20 MG Tablet PO (05:23)
[2020-07-24] MEDS: Ciprofloxacin 250 MG Tablet PO (05:23)
[2020-07-24] MEDS: Senna/Docusate Sodium 1 Tablet PO ×2 (05:25→17:04)
[2020-07-24] MEDS: Lidocaine 5% Patch 2 PATCH TOPICAL (05:29)
[2020-07-24] MEDS: Menthol/Lanolin/Calamine/Znox 113 GM Tube 1 APPLIC TOPICAL ×2 (05:30→21:06)
[2020-07-24] MEDS: Multivitamins,Ther W-Minerals Tablet 1 TABLET PO (09:06)
[2020-07-24] MEDS: Allopurinol 300 MG Tablet PO (09:06)
--- NOTE | 2020-07-24 10:15 | NURSING ---
urine culture and sensitivity back and cipro resistant, new order for cefdinir.
[2020-07-24 15:45] VITALS: BP 116/42; PULSE 105; RESP 18; TEMP 37; O2SAT 96
[2020-07-24] MEDS: Cefdinir 300 MG Capsule PO (17:04)
[2020-07-24] MEDS: Mirtazapine 15 MG Tablet 7.5 MG PO (21:05)
[2020-07-24 21:12] VITALS: RESP 15
[2020-07-24] MEDS: Donepezil HCl 10 MG Tablet PO (23:30)
[2020-07-25 04:00] VITALS: BP 136/56; PULSE 90; RESP 16; TEMP 37.1; O2SAT 93
[2020-07-25] MEDS: Senna/Docusate Sodium 1 Tablet PO ×3 (05:50→16:55)
[2020-07-25] MEDS: Cefdinir 300 MG Capsule PO ×2 (05:50→16:53)
[2020-07-25] MEDS: Pantoprazole Sodium 20 MG Tablet PO (05:50)
[2020-07-25] MEDS: Ezetimibe 10 MG Tablet PO (05:50)
[2020-07-25] MEDS: Enoxaparin 30 MG/0.3 ML Syringe SC (05:50)
[2020-07-25] MEDS: Lidocaine 5% Patch 2 PATCH TOPICAL (05:51)
[2020-07-25] MEDS: Menthol/Lanolin/Calamine/Znox 113 GM Tube 1 APPLIC TOPICAL ×2 (05:51→22:28)
[2020-07-25] MEDS: Polyethylene Glycol 3350 17 GM PACKET PO (05:53)
[2020-07-25] MEDS: Allopurinol 300 MG Tablet PO (13:46)
[2020-07-25 14:30] VITALS: PULSE 99; RESP 18; O2SAT 96
[2020-07-25 15:32] VITALS: BP 106/68; PULSE 99; RESP 18; TEMP 37.6; O2SAT 96
[2020-07-25] MEDS: Multivitamins,Ther W-Minerals Tablet 1 TABLET PO (16:53)
[2020-07-25] MEDS: Acetaminophen 500 MG Tablet 1000 MG PO (16:58)
[2020-07-25] MEDS: Donepezil HCl 10 MG Tablet PO (22:24)
[2020-07-25] MEDS: Mirtazapine 15 MG Tablet 7.5 MG PO (22:24)
[2020-07-26 04:00] VITALS: BP 130/46; PULSE 105; RESP 18; TEMP 37; O2SAT 95
[2020-07-26] MEDS: Menthol/Lanolin/Calamine/Znox 113 GM Tube 1 APPLIC TOPICAL ×2 (06:21→20:30)
[2020-07-26] MEDS: Lidocaine 5% Patch 2 PATCH TOPICAL (06:23)
[2020-07-26] MEDS: Cefdinir 300 MG Capsule PO ×2 (06:23→18:18)
[2020-07-26] MEDS: Enoxaparin 30 MG/0.3 ML Syringe SC (06:23)
[2020-07-26] MEDS: Pantoprazole Sodium 20 MG Tablet PO (06:23)
[2020-07-26] MEDS: Polyethylene Glycol 3350 17 GM PACKET PO (06:24)
--- NOTE | 2020-07-26 07:07 | MDS.RN ---
Information for the mds was obtained from review of the clinical record, interview of resident, staff, and direct observation of resident's care.
[2020-07-26] MEDS: Ezetimibe 10 MG Tablet PO (07:33)
[2020-07-26] MEDS: Allopurinol 300 MG Tablet PO (09:15)
[2020-07-26] MEDS: Multivitamins,Ther W-Minerals Tablet 1 TABLET PO (09:15)
[2020-07-26 14:23] VITALS: BP 112/68; PULSE 86; RESP 17; TEMP 36.7; O2SAT 97
--- NOTE | 2020-07-26 15:50 | CASEMGMT ---
Daughter Shae Smith notified of last covered day with insurance 07/28/2020, discharge date 07/29/20. [facility] issued, number for appeal provided to daughter. SW explained that the SW from TCU will be in touch with her tomorrow for discharge planning. Daughter states understanding. [facility] faxed back to insurance and copy placed in chart. BAR Santana
--- NOTE | 2020-07-26 17:44 | CASEMGMT ---
Social Work Telephone call from [facility] received, patient is appealing. Patient . Requested clinicals faxed to [facility]. Telephone call to patient daughter, Chichi. Updated that appeal request has been obtained and is being processed. Chichi aware that patient will be finically responsible after 07/28/2020 if appeal is lost. Social Work will continue to follow as needed. Sheila DICKINSON, LIBERTYS
[2020-07-26] MEDS: Senna/Docusate Sodium 1 Tablet PO (18:18)
[2020-07-26] MEDS: Acetaminophen 500 MG Tablet 1000 MG PO (18:48)
[2020-07-26] MEDS: Mirtazapine 15 MG Tablet 7.5 MG PO (20:27)
[2020-07-26] MEDS: Donepezil HCl 10 MG Tablet PO (20:27)
[2020-07-27 06:06] LABS: Absolute Lymphocyte Count 3.17 X10^3/uL (0.83-4.51); Absolute Neutrophil Count 4.8 X10^3/uL (2.0-7.7); Basophil# 0.03 X10^3/uL; Basophil% 0.3 % (0-1); Eosinophil# 0.37 X10^3/uL; Eosinophils% 3.8 % (0-5); Hematocrit 32.2 % (37-47); Hemoglobin 10.2 g/dL (12.0-15.0); Lymphocyte # 3.17 X10^3/ul (4.0); Lymphocyte % 32.7 % (19-41); Mean Corp Hgb Conc 31.7 g/dL (32-36); Mean Corpuscular Hgb 31.6 pg (27.0-32.0); Mean Corpuscular Volume 99.7 fL (81-99); Mean Platelet Vol. 10.1 fl (6.2-12.0); Monocyte# 1.29 X10^3/uL; Monocyte% 13.3 % (0-10); NRBC Flagged by Analyzer 0 % (0-5); Neutrophil # 4.77 X10^3/uL (2.7-7.7); Neutrophil % 49.3 % (47-70); POSITIVE MORPHOLOGY YES; Platelet Count 402 K/mm3 (150-450); RBC Distribution Width CV 18.2 % (11.6-14.6); RBC Distribution Width SD 67.7 fl (35.1-43.9); Red Blood Count 3.23 M/mm3 (4.2-5.4); White Blood Count 9.7 K/mm3 (4.4-11.0)
[2020-07-27 06:14] VITALS: BP 132/72; PULSE 91; RESP 16; TEMP 36.2; O2SAT 96
[2020-07-27] MEDS: Polyethylene Glycol 3350 17 GM PACKET PO (06:16)
[2020-07-27] MEDS: Enoxaparin 30 MG/0.3 ML Syringe SC (06:17)
[2020-07-27] MEDS: Senna/Docusate Sodium 1 Tablet PO ×2 (06:17→18:19)
[2020-07-27] MEDS: Cefdinir 300 MG Capsule PO ×2 (06:17→18:19)
[2020-07-27] MEDS: Pantoprazole Sodium 20 MG Tablet PO (06:17)
[2020-07-27] MEDS: Ezetimibe 10 MG Tablet PO (06:17)
[2020-07-27 06:18] LABS: Differential Indicated SCAN CRITERIA MET
[2020-07-27] MEDS: Menthol/Lanolin/Calamine/Znox 113 GM Tube 1 APPLIC TOPICAL ×2 (06:21→20:12)
[2020-07-27] MEDS: Lidocaine 5% Patch 2 PATCH TOPICAL (06:23)
[2020-07-27 06:28] LABS: Anion Gap 7 (5-15); BUN 26 mg/dL (7-18); BUN/Creat Ratio 29.5 RATIO (10-20); Calcium,Total 10.8 mg/dL (8.5-10.1); Chloride 104 mmol/L (98-107); Creatinine, Serum 0.88 mg/dL (0.55-1.02); EST Glomerular Filtration Rate 65 mL/min (>60); Est Glom Filt Rate - Afr Amer 78 mL/min (>60); Estimated Creatinine Clearance 34.18 ml/min; Glucose 98 mg/dL (74-106); Potassium 3.9 mmol/L (3.5-5.1); Sodium Level 140 mmol/L (136-145)
--- NOTE | 2020-07-27 08:10 | CASEMGMT ---
Social Work Followed up with dtr on appeal and financial liability. Dtr explained she would like to have another day for pt to be in TCU as family not able to bead picker the furniture from [place] until 07/30 to move home. Provided private pay daily rate if dtr chooses to pay for that day if appeal is lost. Reviewed DC needs. Dtr agreeable to [facility] - referral made for PT/OT/ST. Inquired about PCP as pt does not have one established. Dtr inquired about Dr. Saab. asked Dr. Saab if he would be pt's PCP - he agreed. Dtr requesting w/c - referred to [employer]. Will await appeal outcome. Albertina Spivey, AUTOMOTIVE FLEET SUPERVISOR BUSINESS MANAGEMENT MANAGER
--- NOTE | 2020-07-27 08:25 | DCINST_ITS ---
- Discharge Diagnoses Current Active Problems: Current Active and Chronic Problems Debility (Acute) Fall (Acute) Closed right hip fracture (Acute) Closed nondisplaced fracture of fifth left metatarsal bone (Acute) Alzheimer disease (Chronic) GERD (gastroesophageal reflux disease) (Chronic) Chronic UTI (Chronic) Gout (Chronic) Hypertension (Chronic) Hyperlipidemia (Chronic) Vitamin D deficiency (Chronic) You will use the following diet at home:: Regular Your food should be the consistency of: Mechanical soft (ground) Your liquids should be the consistency of: Regular/Thin Discharge Activity: Return to Normal Activity, May Shower, Use Walker Weight Bearing Status: Weight bearing as tolerated Call your doctor if you observe: Fever of 101 or Higher, Inability to urinate, Inability to have a bowel movement, Shortness of breath, Chest pain, Uncontrolled pain Allergies/Adverse Reactions: Allergies azithromycin Allergy (Verified 07/13/20 02:20) Swelling duloxetine [From Cymbalta] Allergy (Verified 07/13/20 02:20) PT UNABLE TO RESPOND-NEEDS F/U penicillin G Allergy (Verified 07/13/20 02:20) Swelling pregabalin Allergy (Verified 07/13/20 02:20) PT UNABLE TO RESPOND-NEEDS F/U sulfamethoxazole [From Bactrim] Allergy (Verified 07/13/20 02:20) Rash trimethoprim [From Bactrim] Allergy (Verified 07/13/20 02:20) Rash vaccine adjuvant system, AS01B liposomal [From Shingrix (PF)] Allergy (Verified 07/13/20 02:20) Rash varicella-zoster virus glycoprotein E, recombinant [From Shingrix (PF)] Allergy (Verified 07/13/20 02:20) Rash prednisone Adverse Reaction (Verified 07/13/20 02:20) PT UNABLE TO RESPOND-NEEDS F/U Medications to take at Discharge Allopurinol [Zyloprim] 300 mg PO DAILY 07/13/20 Cholecalciferol (Vitamin D3) [Vitamin D3] 2,000 unit PO DAILY 07/13/20 Donepezil HCl [Aricept] 10 mg PO QHS 07/13/20 Ezetimibe 10 mg PO DAILY 07/13/20 Multivit-Min/Iron/Folic Acid/K [Multi-Day Plus Minerals Tablet] 1 ea PO DAILY 07/13/20 Omeprazole [Prilosec] 20 mg PO DAILY 07/13/20 Acetaminophen [Tylenol] 1,000 mg PO Q6H PRN tab 07/27/20 Cefdinir [Omnicef [equiv]] 300 mg PO Q12 #5 cap 07/27/20 Lidocaine [Lidoderm Patch] 2 patch TOPICAL DAILY #30 patch 07/27/20 Menthol/Lanolin/Calamine/Znox [Calmoseptine Ointment] 1 applic TOPICAL 0600,2200 tube 07/27/20 Mirtazapine [Remeron] 7.5 mg PO QHS #30 tab 07/27/20 The following prescriptions were given: Lidocaine [Lidoderm Patch] 2 patch TOPICAL DAILY #30 patch Prescription Printed Cefdinir [Omnicef [equiv]] 300 mg PO Q12 #5 cap Prescription Printed Mirtazapine [Remeron] 7.5 mg PO QHS #30 tab Prescription Printed Primary Care Physician: Alek Saab Chi, MD [COURTESY STAFF PHYSICIAN] - Please follow up with your Primary Care Physician in: 1 week. Test Results: Test results from this visit will be discussed in further detail at your follow- up appointment, if applicable. Please Follow Up With: Gabriel Alexander When: daughter will pharmacy picking technician at 0830 Proposed Discharge Date: 07/29/20
--- NOTE | 2020-07-27 08:27 | PCM.DC.SUM ---
Discharge Date and Diagnosis - Problem List Patient Problems: Active and Suspected Problems Debility (Acute) Fall (Acute) Closed right hip fracture (Acute) Closed nondisplaced fracture of fifth left metatarsal bone (Acute) Date of Admission: 07/13/20 Date of Discharge: 07/29/20 - Primary Discharge Diagnosis Acute Problems: Active Problems Debility (Acute) Fall (Acute) Closed right hip fracture (Acute) Closed nondisplaced fracture of fifth left metatarsal bone (Acute) - Secondary Discharge Diagnosis Chronic Problems: Chronic Problems Alzheimer disease (Chronic) GERD (gastroesophageal reflux disease) (Chronic) Chronic UTI (Chronic) Gout (Chronic) Hypertension (Chronic) Hyperlipidemia (Chronic) Vitamin D deficiency (Chronic) Hospital Course and Treatment Imaging Results: 07/13/20 02:25 Diet: Regular - General Food consistency:: Mechanical (Minced/Moist) Liquid Consistency:: Regular/Thin Type of Dietary Supplement:: EP or MC w/ L&D Diet Comments: Supervision at meals; liquids by straw - single sips; meds whole in [facility] (Last 48 Hours) 07/27/20 07/27/20 05:13 05:13 WBC 9.7 RBC 3.23 L Hgb 10.2 L Hct 32.2 L MCV 99.7 H MCH 31.6 MCHC 31.7 L RDW Std Deviation 67.7 H RDW Coeff of Karina 18.2 H Plt Count 402 MPV 10.1 Immature Gran % (Auto) 0.600 Neut % (Auto) 49.3 Lymph % (Auto) 32.7 [place] % (Auto) 13.3 H Eos % (Auto) 3.8 Baso % (Auto) 0.3 Absolute Neuts (auto) 4.8 Absolute Lymphs (auto) 3.17 Nucleated RBC % 0 Sodium 140 Potassium 3.9 Chloride 104 Carbon Dioxide 29.0 Anion Gap 7 BUN 26 H Creatinine 0.88 Estim Creat Clear Calc 34.18 Est GFR (MDRD) Af Amer 78 Est GFR (MDRD) Non-Af 65 BUN/Creatinine Ratio 29.5 H Glucose 98 Calcium 10.8 H Operations: None Procedures: None Summary of Care Provided: The patient is a 84 year old Female with below past medical history hospitalized for right hip fracture, left 5th metatarsal fracture, underwent ORIF right hip fracture, complicated by leukocytosis, postoperative anemia, admitted to TCU with debility, here for rehabilitation, strengthening, prior to discharge to [facility]. E. Coli urinary tract infection treated with Cefdinir 300MG Q12H x 7 days. Discharge home with daughter, [facility] PT/OT/ST. Patient Problems: Active and Suspected Problems Debility (Acute) Fall (Acute) Closed right hip fracture (Acute) Closed nondisplaced fracture of fifth left metatarsal bone (Acute) - Physical Exam Vitals/I&O's: Vital Signs Temp Pulse Resp BP Pulse Ox 97.2 F L 91 16 132/72 H 96 07/27/20 06:14 07/27/20 06:14 07/27/20 06:14 07/27/20 06:14 07/27/20 06:14 Oxygen Delivery Method Room Air Weight: 55.452 kg Body Mass Index (BMI) 24.2 Intake and Output for Last 24 Hours 07/25/20 07/26/20 07/27/20 23:59 23:59 23:59 Intake Total 60 / 60 330 / 330 Balance 60 / 60 330 / 330 Microbiology Past 72 Hours 07/22/20 16:05 Urine, Catheterized Urine Culture - Final Presumptive E. coli Laboratory Results 07/27/20 05:13: WBC 9.7, RBC 3.23 L, Hgb 10.2 L, Hct 32.2 L, MCV 99.7 H, MCH 31.6, MCHC 31.7 L, RDW Std Deviation 67.7 H, RDW Coeff of Karina 18.2 H, Plt Count 402, MPV 10.1, Immature Gran % (Auto) 0.600, Neut % (Auto) 49.3, Lymph % (Auto) 32.7, [place] % (Auto) 13.3 H, Eos % (Auto) 3.8, Baso % (Auto) 0.3, Absolute Neuts (auto) 4.8, Absolute Lymphs (auto) 3.17, Nucleated RBC % 0 07/27/20 05:13: Sodium 140, Potassium 3.9, Chloride 104, Carbon Dioxide 29.0, Anion Gap 7, BUN 26 H, Creatinine 0.88, Estim Creat Clear Calc 34.18, Est GFR (MDRD) Af Amer 78, Est GFR (MDRD) Non-Af 65, BUN/Creatinine Ratio 29.5 H, Glucose 98, Calcium 10.8 H Current Medications Acetaminophen (Acetaminophen 500 Mg Tablet) 1,000 mg PO Q6H PRN PRN Reason: Pain Score 1-5 Last Admin: 07/26/20 18:48 Dose: 1,000 mg Documented by: Allopurinol (Allopurinol 300 Mg Tablet) 300 mg PO DAILY@0800 [facility] Last Admin: 07/26/20 09:15 Dose: 300 mg Documented by: Bisacodyl (Bisacodyl 10 Mg Suppository) 10 mg RECTAL DAILY PRN PRN Reason: Constipation Calamine/Phenol (Menthol/Lanolin/Calamine/Znox 113 Gm Tube) 1 applic TOPICAL 0600,2200 [facility]; Protocol Last Admin: 07/27/20 06:21 Dose: 1 applicatio Documented by: Cefdinir (Cefdinir 300 Mg Capsule) 300 mg PO Q12 [facility] Stop: 07/31/20 18:01 Last Admin: 07/27/20 06:17 Dose: 300 mg Documented by: Cholecalciferol (Cholecalciferol (Vit D3) 1,000 Unit (25mcg)) 2,000 unit PO DAILY [facility] Last Admin: 07/27/20 06:17 Dose: 2,000 unit Documented by: Donepezil HCl (Donepezil Hcl 10 Mg Tablet) 10 mg PO QHS [facility] Last Admin: 07/26/20 20:27 Dose: 10 mg Documented by: Ezetimibe (Ezetimibe 10 Mg Tablet) 10 mg PO DAILY [facility] Last Admin: 07/27/20 06:17 Dose: 10 mg Documented by: Enoxaparin Sodium (Enoxaparin 30 Mg/0.3 Ml Syringe) 30 mg SC DAILY [facility] Last Admin: 07/27/20 06:17 Dose: 30 mg Documented by: Lidocaine (Lidocaine 5% Patch) 2 patch TOPICAL DAILY [facility]; Protocol Last Admin: 07/27/20 06:23 Dose: 2 patch Documented by: Magnesium Hydroxide (Magnesium Hydroxide 30 Ml Udc) 30 ml PO DAILY PRN PRN Reason: Constipation Last Admin: 07/15/20 13:21 Dose: 30 ml Documented by: Mirtazapine (Mirtazapine 15 Mg Tablet) 7.5 mg PO QHS [facility] Last Admin: 07/26/20 20:27 Dose: 7.5 mg Documented by: Multivitamins/Minerals (Multivitamins,Ther W-Minerals Tablet) 1 tablet PO DAILY@0800 [facility] Last Admin: 07/26/20 09:15 Dose: 1 tablet Documented by: Nutritional Formula (Lactose Free) (Ensure Enlive 120 Ml Liquid) 120 ml PO 4X/DAY [facility] Last Admin: 07/27/20 06:16 Dose: 120 ml Documented by: Oxycodone HCl (Oxycodone 5 Mg Tablet) 2.5 mg PO Q4H PRN PRN PRN Reason: Pain Score 6-10 Last Admin: 07/22/20 17:03 Dose: 2.5 mg Documented by: Pantoprazole Sodium (Pantoprazole Sodium 20 Mg Tablet) 20 mg PO DAILY [facility] Last Admin: 07/27/20 06:17 Dose: 20 mg Documented by: Polyethylene Glycol (Polyethylene Glycol 3350 17 Gm Packet) 17 gm PO DAILY [facility] Last Admin: 07/27/20 06:16 Dose: 17 gm Documented by: Promethazine HCl (Promethazine 25 Mg Tablet) 25 mg PO Q12H PRN PRN PRN Reason: NAUSEA Last Admin: 07/13/20 08:49 Dose: 25 mg Documented by: Senna/Docusate Sodium (Senna/Docusate Sodium 1 Tablet) 1 tablet PO BID [facility] Last Admin: 07/27/20 06:17 Dose: 1 tablet Documented by: Sodium Chloride (0.9% Saline Lock 10 Ml Syringe) 10 - 40 ml IV UD PRN PRN Reason: SALINE FLUSH Last Admin: 07/21/20 18:08 Dose: 10 ml Documented by: Discharge Diet: No Restrictions Discharge Activity: Return to Normal Activity, May Shower, Use Walker Weight Bearing Status: Weight bearing as tolerated Call your doctor if you observe: Fever of 101 or Higher, Inability to urinate, Inability to have a bowel movement, Shortness of breath, Chest pain, Uncontrolled pain Home Medications: Medications to take at Discharge Allopurinol [Zyloprim] 300 mg PO DAILY 07/13/20 Cholecalciferol (Vitamin D3) [Vitamin D3] 2,000 unit PO DAILY 07/13/20 Donepezil HCl [Aricept] 10 mg PO QHS 07/13/20 Ezetimibe 10 mg PO DAILY 07/13/20 Multivit-Min/Iron/Folic Acid/K [Multi-Day Plus Minerals Tablet] 1 ea PO DAILY 07/13/20 Omeprazole [Prilosec] 20 mg PO DAILY 07/13/20 Acetaminophen [Tylenol] 1,000 mg PO Q6H PRN tab 07/27/20 Cefdinir [Omnicef [equiv]] 300 mg PO Q12 #5 cap 07/27/20 Lidocaine [Lidoderm Patch] 2 patch TOPICAL DAILY #30 patch 07/27/20 Menthol/Lanolin/Calamine/Znox [Calmoseptine Ointment] 1 applic TOPICAL 0600,2200 tube 07/27/20 Mirtazapine [Remeron] 7.5 mg PO QHS #30 tab 07/27/20 Following Prescriptions Were Given to Patient: Lidocaine [Lidoderm Patch] 2 patch TOPICAL DAILY #30 patch Prescription Printed Cefdinir [Omnicef [equiv]] 300 mg PO Q12 #5 cap Prescription Printed Mirtazapine [Remeron] 7.5 mg PO QHS #30 tab Prescription Printed Primary Care Physician: Alek Saab Chi, MD [COURTESY STAFF PHYSICIAN] - Please follow up with your Primary Care Physician in: 1 week. Please Follow Up With: Gabriel Alexander When: daughter will turkey picker at 0830 Disposition: Home with Home Health Minutes spent on discharge:: 35 Patient Condition:: Stable Medical Necessity - Tobacco Use Smoking Status: Never smoker Tobacco Use: Non-smoker Meaningful Use Info Meaningful Use Diagnoses (Choose all that apply): None applicable
[2020-07-27] MEDS: Allopurinol 300 MG Tablet PO (08:39)
[2020-07-27] MEDS: Multivitamins,Ther W-Minerals Tablet 1 TABLET PO (08:39)
[2020-07-27 10:00] VITALS: PULSE 96; RESP 18; O2SAT 92
--- NOTE | 2020-07-27 12:43 | CASEMGMT ---
Addendum entered by Albertina Spivey 07/27/20 16:33: Spoke with dtr and they would like her DC'd 07/30 and agreed to pay privately 07/29. Pt will DC to dtr Cihchi's home in [place]. [facility] Referred to [facility]. Original Note: Social Work Vance contacted SW that pt has lost appeal. Left message with dtr to inquire about DC date. Will continue to follow. Albertina Spivey, ALOK ACW
[2020-07-27 14:43] VITALS: BP 117/50; PULSE 95; RESP 16; TEMP 36.6; O2SAT 93
[2020-07-27] MEDS: Donepezil HCl 10 MG Tablet PO (20:14)
[2020-07-27] MEDS: Mirtazapine 15 MG Tablet 7.5 MG PO (20:14)
--- NOTE | 2020-07-27 23:57 | PCA ---
RAPIER INSERTION LOOM FIXER helped patient to the bathroom, and patient complained of burning while urinating. Nurse is aware
[2020-07-28 04:57] VITALS: BP 113/54; PULSE 99; RESP 16; TEMP 36.9; O2SAT 95
[2020-07-28] MEDS: Polyethylene Glycol 3350 17 GM PACKET PO (04:59)
[2020-07-28] MEDS: Cefdinir 300 MG Capsule PO ×2 (05:00→17:56)
[2020-07-28] MEDS: Pantoprazole Sodium 20 MG Tablet PO (05:00)
[2020-07-28] MEDS: Enoxaparin 40 MG/0.4 ML Syringe SC (05:00)
[2020-07-28] MEDS: Senna/Docusate Sodium 1 Tablet PO (05:01)
[2020-07-28] MEDS: Ezetimibe 10 MG Tablet PO (05:01)
[2020-07-28] MEDS: Menthol/Lanolin/Calamine/Znox 113 GM Tube 1 APPLIC TOPICAL ×2 (05:04→20:57)
[2020-07-28] MEDS: Lidocaine 5% Patch 2 PATCH TOPICAL (05:04)
[2020-07-28] MEDS: Allopurinol 300 MG Tablet PO (08:12)
[2020-07-28] MEDS: Multivitamins,Ther W-Minerals Tablet 1 TABLET PO (08:12)
[2020-07-28 14:22] VITALS: BP 95/70; PULSE 103; RESP 16; TEMP 36.3; O2SAT 97
[2020-07-28] MEDS: Mirtazapine 15 MG Tablet 7.5 MG PO (20:55)
[2020-07-28] MEDS: Donepezil HCl 10 MG Tablet PO (20:55)
[2020-07-29 05:33] VITALS: BP 124/56; PULSE 91; RESP 18; TEMP 36.5; O2SAT 92
[2020-07-29] MEDS: Polyethylene Glycol 3350 17 GM PACKET PO (05:35)
[2020-07-29] MEDS: Menthol/Lanolin/Calamine/Znox 113 GM Tube 1 APPLIC TOPICAL ×2 (05:36→20:18)
[2020-07-29] MEDS: Lidocaine 5% Patch 2 PATCH TOPICAL (05:36)
[2020-07-29] MEDS: Pantoprazole Sodium 20 MG Tablet PO (05:37)
[2020-07-29] MEDS: Cefdinir 300 MG Capsule PO ×2 (05:37→17:27)
[2020-07-29] MEDS: Ezetimibe 10 MG Tablet PO (05:37)
[2020-07-29] MEDS: Senna/Docusate Sodium 1 Tablet PO (05:37)
[2020-07-29] MEDS: Enoxaparin 40 MG/0.4 ML Syringe SC (05:37)
[2020-07-29] MEDS: Multivitamins,Ther W-Minerals Tablet 1 TABLET PO (08:52)
[2020-07-29] MEDS: Allopurinol 300 MG Tablet PO (08:52)
--- NOTE | 2020-07-29 09:07 | CASEMGMT ---
Social Work BIMS and PHQ-9 completed for MDS assessment. Albertina Spivey, CADDY/CADDIE SUPERVISOR INTERACTIVE ART DIRECTOR
--- NOTE | 2020-07-29 13:45 | MDS.RN ---
Completed pain interview for lorna 07/30/20
[2020-07-29 15:14] VITALS: BP 110/50; PULSE 92; RESP 16; TEMP 37.1; O2SAT 95
[2020-07-29 15:15] VITALS: PULSE 89; RESP 16; O2SAT 95
--- NOTE | 2020-07-29 16:04 | NURSING ---
Resident and daughter, Chichi, notified of staff member testing positive for COVID.
[2020-07-29] MEDS: Mirtazapine 15 MG Tablet 7.5 MG PO (20:20)
[2020-07-29] MEDS: Donepezil HCl 10 MG Tablet PO (20:20)
[2020-07-30 05:07] VITALS: BP 139/58; PULSE 88; RESP 16; TEMP 36.9; O2SAT 95
[2020-07-30] MEDS: Enoxaparin 40 MG/0.4 ML Syringe SC (05:08)
[2020-07-30] MEDS: Lidocaine 5% Patch 2 PATCH TOPICAL (05:12)
[2020-07-30] MEDS: Cefdinir 300 MG Capsule PO (05:12)
[2020-07-30] MEDS: Pantoprazole Sodium 20 MG Tablet PO (05:12)
[2020-07-30] MEDS: Ezetimibe 10 MG Tablet PO (05:12)
[2020-07-30] MEDS: Menthol/Lanolin/Calamine/Znox 113 GM Tube 1 APPLIC TOPICAL (05:13)
[2020-07-30] MEDS: Allopurinol 300 MG Tablet PO (08:58)
[2020-07-30] MEDS: Multivitamins,Ther W-Minerals Tablet 1 TABLET PO (08:58)
[2020-07-30 10:59] VITALS: PULSE 87; RESP 18; O2SAT 96
[2020-07-30 15:20] VITALS: BP 126/52; PULSE 87; RESP 16; TEMP 36.7; O2SAT 96
== END 2020-07-30 03:00 | disposition home health service (06) | DRG 560 ==
PROVIDERS: Admitting Provider Family Medicine Geriatric Medicine; Referring Provider Family Medicine Geriatric Medicine; Visit Provider Family Medicine Geriatric Medicine
DX: S72.001D Fracture of unspecified part of neck of right femur, subsequent encounter for closed fracture with routine healing (principal); N39.0 Urinary tract infection, site not specified; S92.352D Displaced fracture of fifth metatarsal bone, left foot, subsequent encounter for fracture with routine healing; W19.XXXD Unspecified fall, subsequent encounter; F02.80 Dementia in other diseases classified elsewhere, unspecified severity, without behavioral disturbance, psychotic disturbance, mood disturbance, and anxiety; G30.9 Alzheimer's disease, unspecified; K21.9 Gastro-esophageal reflux disease without esophagitis; E78.5 Hyperlipidemia, unspecified; M10.9 Gout, unspecified; E55.9 Vitamin D deficiency, unspecified; I10 Essential (primary) hypertension; B96.20 Unspecified Escherichia coli [E. coli] as the cause of diseases classified elsewhere
CPT/HCPCS: 36415; 80048; 81001; 85025; 87086; 87088; 87186; 87426; 87635; 92507; 92523; 92526; 92610; 97110; 97116; 97162; 97166; 97530; 97535; 97802; J7030; A4216; J7799; U0003

== ENCOUNTER → 2020-08-03 12:18 | Outpatient (CLI) | payer MEDICARE, SELFPAY ==
[2020-07-13 01:51] VITALS: BMI 24.2
--- NOTE | 2020-08-03 12:55 | RAD_ITS ---
STUDY: X-RAY - ABDOMEN/PELVIS REASON FOR EXAM: Female, 84 years old. abdomen pain TECHNIQUE: AP supine and upright views of the abdomen and pelvis. COMPARISON: None. FINDINGS: Normal visualized lung bases. There is an unremarkable bowel gas pattern. There is no demonstrated free abdominal air. The visualized liver, spleen and kidneys are grossly normal in size and morphology. Normal soft tissue structures. Postsurgical change of the right hip RAD/Abd Inc Decub and/or Erect IMPRESSION: Normal x-ray examination of the abdomen and pelvis. Electronically Signed: Jm Paris DO at 8:31 EST Tel , Service support ,
[2020-08-03 15:24] LABS: Absolute Lymphocyte Count 1.89 X10^3/uL (0.83-4.51); Absolute Neutrophil Count 7.9 X10^3/uL (2.0-7.7); Basophil# 0.03 X10^3/uL; Basophil% 0.3 % (0-1); Eosinophil# 0.21 X10^3/uL; Hematocrit 41.6 % (37-47); Hemoglobin 12.8 g/dL (12.0-15.0); Lymphocyte # 1.89 X10^3/ul (4.0); Lymphocyte % 17.7 % (19-41); Mean Corp Hgb Conc 30.8 g/dL (32-36); Mean Corpuscular Hgb 31.3 pg (27.0-32.0); Mean Corpuscular Volume 101.7 fL (81-99); Mean Platelet Vol. 10.1 fl (6.2-12.0); Monocyte# 0.66 X10^3/uL; Monocyte% 6.2 % (0-10); NRBC Flagged by Analyzer 0 % (0-5); Neutrophil # 7.85 X10^3/uL (2.7-7.7); Neutrophil % 73.3 % (47-70); POSITIVE MORPHOLOGY YES; Platelet Count 534 K/mm3 (150-450); RBC Distribution Width CV 18.1 % (11.6-14.6); RBC Distribution Width SD 67.7 fl (35.1-43.9); Red Blood Count 4.09 M/mm3 (4.2-5.4); White Blood Count 10.7 K/mm3 (4.4-11.0)
[2020-08-03 15:34] LABS: Vitamin D,25 Hydroxy 35.3 ng/mL
[2020-08-03 15:36] LABS: Differential Indicated SCAN CRITERIA MET
[2020-08-03 15:43] LABS: ALB/GLOB Ratio 0.7 RATIO (0.9-2.4); AST(SGOT) 39 U/L (15-37); Alanine Aminotransfer ALT/SGPT 45 U/L (13-56); Albumin, Serum 3.7 g/dL (3.2-5.0); Alkaline Phosphatase 238 U/L (45-117); Anion Gap 10 (5-15); BUN 20 mg/dL (7-18); Calcium,Total 10.8 mg/dL (8.5-10.1); Chloride 103 mmol/L (98-107); Creatinine, Serum 1.25 mg/dL (0.55-1.02); EST Glomerular Filtration Rate 43 mL/min (>60); Est Glom Filt Rate - Afr Amer 52 mL/min (>60); Globulin 5.5 g/dL (2.2-4.2); Glucose 135 mg/dL (74-106); Potassium 4.2 mmol/L (3.5-5.1); Protein, Total 9.2 g/dL (6.4-8.2); Sodium Level 137 mmol/L (136-145); Thyroid Stim Hormone (TSH) 1.27 uIU/mL (0.358-3.74); Uric Acid 6.3 mg/dL (2.6-6.0)
[2020-08-03 15:50] LABS: Anisocytosis 1+; Differential Comment SCANNED
== END ==
PROVIDERS: PCP Family Medicine Geriatric Medicine; Referring Provider Family Medicine Geriatric Medicine; Visit Provider Family Medicine Geriatric Medicine
DX: E55.9 Vitamin D deficiency, unspecified (principal); R53.83 Other fatigue; M10.9 Gout, unspecified; R10.9 Unspecified abdominal pain
CPT/HCPCS: 36415; 74019; 80053; 82306; 84443; 84550; 85025

== ENCOUNTER → 2020-08-16 12:37 | Outpatient (CLI) | payer MEDICARE, SELFPAY ==
[2020-07-13 01:51] VITALS: BMI 24.2
--- NOTE | 2020-08-16 12:42 | BD_ITS ---
STUDY: DUAL ENERGY X-RAY ABSORPTIOMETRY / DXA REASON FOR EXAM: Female, 84 years old. 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 HEIGHT -- PT CONFUSED AND UNABLE TO ANSWER QUESTIONS TECHNIQUE: Bone Mineral Density (BMD) measurements of lumbar spine and left hip were obtained. COMPARISON: None. FINDINGS: Lumbar Spine (L1-L4): g/cm2 (1.150) / T-score (-0.2) / Z-score (1.7) Findings are suggestive of normal bone density with a low fracture risk. Left Femur Total: g/cm2 (0.818) / T-score (-1.5) / Z-score (0.8) Left Femoral Neck: g/cm2 (0.818) / T-score (-1.6) / Z-score (0.8) BD/Dexa Bone Density Study IMPRESSION: The patient is considered osteopenic as outlined below according to World Alex Organization (WHO) criteria with a moderate fracture risk. Reference Information: The T-score is the number of standard deviations above or below the standard which is normal for young adults at their peak bone mineral density. The World Health Organization (WHO) interprets the T-scores as follows: Above -1 Normal bone density Between -1 and -2.5 Osteopenia Equal to / or below -2.5 Osteoporosis As a practical clinical guideline, osteopenia may be graded as follows: Mild -1 through -1.5 Moderate -1.6 through -2.0 Severe -2.1 through -2.4 The Z-score is the number of standard deviations above or below age-matched controls. A Z-score of less than -1.5 would be considered abnormal. References: 1. NIH Osteoporosis and Related Bone Diseases www osteo.org 2. International Society for Clinical Densitometry www iscd.org 3. National Osteoporosis Foundation www nof.org Electronically Signed: Chavo Eagle, at 15:11 EST , Service support ,
== END ==
PROVIDERS: PCP Family Medicine Geriatric Medicine; Referring Provider Family Medicine Geriatric Medicine; Visit Provider Family Medicine Geriatric Medicine
DX: Z78.0 Asymptomatic menopausal state (principal)
CPT/HCPCS: 77080

== ENCOUNTER → 2020-10-04 14:58 | Outpatient (CLI) | payer MEDICARE, SELFPAY ==
[2020-07-13 01:51] VITALS: BMI 24.2
== END ==
PROVIDERS: PCP Family Medicine Geriatric Medicine; Visit Provider Family Medicine Geriatric Medicine
DX: N39.0 Urinary tract infection, site not specified (principal)
CPT/HCPCS: 87077; 87086; 87088; 87186

== ENCOUNTER → 2021-02-15 15:06 | Outpatient (CLI) | payer MEDICARE, SELFPAY ==
[2020-07-13 01:51] VITALS: BMI 24.2
[2021-02-15 17:18] LABS: Absolute Lymphocyte Count 4.59 X10^3/uL (0.83-4.51); Absolute Neutrophil Count 3.7 X10^3/uL (2.0-7.7); Basophil# 0.03 X10^3/uL; Basophil% 0.3 % (0-1); Eosinophil# 0.24 X10^3/uL; Eosinophils% 2.5 % (0-5); Hematocrit 40.3 % (37-47); Hemoglobin 13.2 g/dL (12.0-15.0); Lymphocyte # 4.59 X10^3/ul (0.83-4.51); Lymphocyte % 48.2 % (19-41); Mean Corp Hgb Conc 32.8 g/dL (32-36); Mean Corpuscular Hgb 32.5 pg (27.0-32.0); Mean Corpuscular Volume 99.3 fL (81-99); Mean Platelet Vol. 9.9 fl (6.2-12.0); Monocyte# 0.95 X10^3/uL; NRBC Flagged by Analyzer 0 % (0-5); Neutrophil # 3.71 X10^3/uL (2.7-7.7); Neutrophil % 38.9 % (47-70); Platelet Count 317 K/mm3 (150-450); RBC Distribution Width CV 13.2 % (11.6-14.6); RBC Distribution Width SD 48.5 fl (35.1-43.9); Red Blood Count 4.06 M/mm3 (4.2-5.4); White Blood Count 9.5 K/mm3 (4.4-11.0)
--- NOTE | 2021-02-15 17:20 | RAD_ITS ---
STUDY: X-RAY - RIGHT SHOULDER REASON FOR EXAM: Female, 85 years old. SHOULDER PAIN TECHNIQUE: 4 view(s) of the shoulder. COMPARISON: None. FINDINGS: Normal glenohumeral articulation. Normal acromioclavicular joint. Questionable old avulsion fracture of the distal lateral aspect of the clavicle. Normal acromion. Normal humeral head and visualized proximal humerus. The soft tissue structures are unremarkable. Normal visualized pulmonary apex. RAD/Shoulder min 2 Views IMPRESSION: Questionable old avulsion fracture of the distal aspect of the right clavicle. Electronically Signed: Chavo Eagle MD at 14:33 EDT , Service support ,
--- NOTE | 2021-02-15 17:20 | RAD_ITS ---
STUDY: X-RAY - RIGHT ELBOW REASON FOR EXAM: Female, 85 years old. R ELBOW PAIN TECHNIQUE: 3 view(s) of the elbow. COMPARISON: None. FINDINGS: Normal visualized humerus, radius and ulna. There is degenerative arthrosis of the radiocapitellar and ulnotrochlear articulations. The soft tissue structures are unremarkable. RAD/Elbow min 3 Views IMPRESSION: Mild degree of degenerative changes. Electronically Signed: Chavo Eagle MD at 14:34 EDT , Service support ,
[2021-02-15 17:34] LABS: Vitamin D,25 Hydroxy 32.8 ng/mL
[2021-02-15 17:37] LABS: ALB/GLOB Ratio 0.8 RATIO (0.9-2.4); AST(SGOT) 28 U/L (15-37); Alanine Aminotransfer ALT/SGPT 28 U/L (13-56); Albumin, Serum 3.8 g/dL (3.2-5.0); Alkaline Phosphatase 144 U/L (45-117); Anion Gap 7 (5-15); BUN 22 mg/dL (7-18); BUN/Creat Ratio 22.8 RATIO (10-20); Calcium,Total 9.9 mg/dL (8.5-10.1); Chloride 108 mmol/L (98-107); Creatinine, Serum 0.96 mg/dL (0.55-1.02); EST Glomerular Filtration Rate 58 mL/min (>60); Est Glom Filt Rate - Afr Amer 71 mL/min (>60); Globulin 4.6 g/dL (2.2-4.2); Glucose 92 mg/dL (74-106); Potassium 4.2 mmol/L (3.5-5.1); Protein, Total 8.4 g/dL (6.4-8.2); Sodium Level 140 mmol/L (136-145); Thyroid Stim Hormone (TSH) 1.39 uIU/mL (0.358-3.74); Uric Acid 8.6 mg/dL (2.6-6.0)
== END ==
PROVIDERS: PCP Family Medicine Geriatric Medicine; Referring Provider Family Medicine Geriatric Medicine; Visit Provider Family Medicine Geriatric Medicine
DX: E55.9 Vitamin D deficiency, unspecified (principal); M10.9 Gout, unspecified; R53.83 Other fatigue; M25.521 Pain in right elbow; N39.0 Urinary tract infection, site not specified; M25.511 Pain in right shoulder
CPT/HCPCS: 36415; 73030; 73080; 80053; 82306; 84443; 84550; 85025; 87086; 87088

== ENCOUNTER 2021-04-19 13:35 | Inpatient (IN) | payer MEDICARE, SELFPAY ==
[2021-04-19 16:24] VITALS: BMI 26.2
[2021-04-19 16:29] VITALS: BP 119/61; PULSE 64; RESP 17; TEMP 36.9; O2SAT 95
[2021-04-19] MEDS: CLARIFY ORDER NOTE ×2 (16:55)
--- NOTE | 2021-04-19 21:20 | NURSING ---
This Nurse was walking past patients room, and observed patient sitting on side of bed, attempting to get up. Patients head and torso were forward and patient was about to fall head first. Patient alert to self at this time. Assisted patient back into bed. While still in patient's room, tiding up, patient attempted to get out of bed again. Patient transferred to recliner x1 assist and brought to Nurses station.
--- NOTE | 2021-04-19 21:26 | HP.PCM_ITS ---
[facility] - General General Date of Admission: 04/19/21 [facility] Narrative 04/11/2021 EPI WALTON, is a 85 Female who presents to [facility] with right leg pain. She fell on right side, X-ray showed right hip fracture. CT head negative. CT cervical spine negative. X-ray bilateral shoulders showed arthritis, no fracture. X-ray right tibia/fibula negative for fracture. Chest X-ray negative. 04/11/2021 Admit to [facility]. Liz QUEZADA for urinary tract infection. 04/12/2021 Dr. Benitez performed ORIF right femur. Medical records limited. 04/19/2021 Admit to TCU with debility, here for rehabilitation, strengthening, prior to discharge home. PFSH Home Medications allopurinol 300 mg PO DAILY 07/13/20 [History Last Taken Unknown] cholecalciferol (vitamin D3) 2,000 unit PO DAILY 07/13/20 [History Last Taken Unknown] donepezil 5 mg PO QHS 07/13/20 [History Last Taken Unknown] ezetimibe 10 mg PO DAILY 07/13/20 [History Last Taken Unknown] vafoaoxeffgw-soy-cdqr-FA-vit K 1 ea PO DAILY 07/13/20 [History Last Taken Unknown] omeprazole 20 mg PO QODAY 07/13/20 [History Last Taken Unknown] acetaminophen 1,000 mg PO Q6H PRN tab 07/27/20 [Rx Last Taken Unknown] lidocaine 2 patch TOPICAL DAILY #30 patch 07/27/20 [Rx Last Taken Unknown] calcium carbonate-vitamin D3 [Calcium 500 + D (D3)] 1 tab PO DAILY 04/19/21 [History Last Taken Unknown] cefdinir 300 mg PO Q12 04/19/21 [History Last Taken Unknown] cefdinir 300 mg PO Q12H 04/19/21 [History Last Taken Unknown] cefdinir 300 mg PO Q12H 04/19/21 [History Last Taken Unknown] docusate sodium 100 mg PO DAILY 04/19/21 [History Last Taken Unknown] enoxaparin [Lovenox] 40 mg SUBCUT DAILY 04/19/21 [History Last Taken Unknown] lidocaine 2 patch TOPICAL DAILY 04/19/21 [History Last Taken Unknown] lidocaine 2 patch TOPICAL DAILY 04/19/21 [History Last Taken Unknown] lisinopril 5 mg PO QODAY 04/19/21 [History Last Taken Unknown] menthol-zinc oxide 1 applic TOPICAL 0600,2200 04/19/21 [History Last Taken Unknown] mirtazapine 7.5 mg PO QHS 04/19/21 [History Last Taken Unknown] mirtazapine 7.5 mg PO QHS 04/19/21 [History Last Taken Unknown] mirtazapine 7.5 mg PO QHS 04/19/21 [History Last Taken Unknown] oxycodone 5 mg PO Q4H PRN 04/19/21 [History Last Taken Unknown] polyethylene glycol 3350 [Miralax] 17 g PO DAILY 04/19/21 [History Last Taken Unknown] promethazine 25 mg PO Q12H PRN 04/19/21 [History Last Taken Unknown] Allergy/AdvReac Type Severity Reaction Status Date / Time azithromycin Allergy Swelling Verified 07/13/20 02:20 duloxetine [From Cymbalta] Allergy PT UNABLE Verified 07/13/20 02:20 TO RESPOND-NEEDS F/U penicillin G Allergy Swelling Verified 07/13/20 02:20 pregabalin Allergy PT UNABLE Verified 07/13/20 02:20 TO RESPOND-NEEDS F/U sulfamethoxazole Allergy Rash Verified 07/13/20 02:20 [From Bactrim] trimethoprim [From Bactrim] Allergy Rash Verified 07/13/20 02:20 vaccine adjuvant system, Allergy Rash Verified 07/13/20 02:20 AS01B liposomal [From Shingrix (PF)] varicella-zoster virus Allergy Rash Verified 07/13/20 02:20 glycoprotein E, recombinant [From Shingrix (PF)] prednisone AdvReac PT UNABLE Verified 07/13/20 02:20 TO RESPOND-NEEDS F/U Surgical History (Updated 04/19/21 @ 21:[address] Alek Saab MD) History of dilatation and curettage History of open reduction and internal fixation (ORIF) procedure History of total right knee replacement Social History (Updated 04/19/21 @ 21:[address] Alek Saab MD) household members: none Smoking Status: Never smoker alcohol intake: never substance use type: does not use ROS Constitutional Constitutional: Denies chills, fever(s) or weight gain ENT HEENT: Denies headache(s), nasal congestion or nasal discharge Cardiovascular Cardiovascular: Denies chest pain or palpitations Respiratory/Chest Respiratory/Chest: Denies cough, excessive phlegm production or shortness of breath with exertion Gastrointestinal Gastrointestinal: Denies abdominal pain, nausea or vomiting Genitourinary Genitourinary: Denies dysuria Musculoskeletal Musculoskeletal: Denies joint pain or joint swelling Integumentary Integumentary: Denies rash or wounds Neurologic Neurologic: Denies focal weakness, numbness or tingling Psychiatric Psychiatric: Reports auditory hallucinations; Denies anxiety, depression, homicidal ideation or suicidal ideation Vital Signs Vital Signs Vital Signs: 04/19/21 16:01 04/19/21 16:29 Temperature 98.4 F Temperature Source Oral Pulse Rate 64 Pulse Rhythm Regular Pulse Strength Normal (2+) Respiratory Rate 17 Respiratory Effort Normal Non-Labored Respiratory Depth Normal Respiratory Pattern Normal Blood Pressure 119/61 Blood Pressure Mean 80 Blood Pressure Source Monitor Blood Pressure Position Semi-Fowlers Blood Pressure Location Right Arm Pulse Ox 95 Oxygen Delivery Method Room Air Room Air Weight Weight: 67.132 kg Body Mass Index (BMI) 26.2 Physical Exam Const alert and oriented x3 General Appearance: cooperative HEENT normocephalic Eyes PERRL and EOMs intact bilaterally Neck supple, no JVD and no carotid bruits Resp normal respiratory effort, normal air movement and clear to auscultation bilaterally Cardio regular rate and regular rhythm GI normal to inspection, nondistended, normoactive bowel sounds, non-tender and non-distended Extremity normal capillary refill General Extremity: Negative for edema Skin no rashes or lesions noted General Skin Exam: no breakdown Psych affect normal Appearance: appropriate Assessment & Plan Assessment/Plan (1) Debility: (2) Fall: (3) Closed right hip fracture: (4) GERD (gastroesophageal reflux disease): (5) Vitamin D deficiency: (6) Alzheimer disease: (7) Insomnia: (8) Fecal impaction of colon: (9) Appetite loss: (10) Urinary tract infection: PLAN: 85 year old female with below past medical history hospitalized for right interprosthetic distal femur fracture, underwent ORIF right hip 04/12/2021, admitted to TCU with debility, here for rehabilitation, strengthening, prior to disposition determination. * Debility - PT/OT. * Pain - Tylenol 1000mg Q6H prn pain (1-5), Oxycodone 5mg Q4H prn pain (6-10), Lidoderm patch 2 patches TD daily. * Bowel - Miralax 17gm daily, Senna/colace 2 tablets twice daily, Dulcolax 10mg daily prn. * Adult immunization - Administer prevnar 13, pneumovax 23, fluzone, covid19 vaccine as appropriate. * DVT prophylaxis - Lovenox 40mg sc daily. * Calcium deficiency - Calcium D 1 tablet daily. * Vitamin D deficiency - D3 50mcg daily. * Alzheimer Disease - Donepezil 5mg QHS. * GERD - Pantoprazole 20mg daily.
[2021-04-19] MEDS: Donepezil HCl 5 MG Tablet PO (21:46)
[2021-04-19] MEDS: oxyCODONE 5 MG Tablet PO (21:47)
[2021-04-19] MEDS: Senna/Docusate Sodium 1 Tablet 2 TABLET PO (23:13)
--- NOTE | 2021-04-19 23:14 | NURSING ---
Patient continues to be 1:1 on at Nurses station.
[2021-04-20 05:00] VITALS: BP 140/55; PULSE 81
[2021-04-20 05:44] LABS: Absolute Lymphocyte Count 2.59 X10^3/uL (0.83-4.51); Absolute Neutrophil Count 6.4 X10^3/uL (2.0-7.7); Basophil# 0.04 X10^3/uL; Basophil% 0.4 % (0-1); Eosinophil# 0.41 X10^3/uL; Eosinophils% 3.7 % (0-5); Hematocrit 28.9 % (37-47); Hemoglobin 9.3 g/dL (12.0-15.0); Lymphocyte # 2.59 X10^3/ul (0.83-4.51); Lymphocyte % 23.5 % (19-41); Mean Corp Hgb Conc 32.2 g/dL (32-36); Mean Corpuscular Hgb 33.7 pg (27.0-32.0); Mean Corpuscular Volume 104.7 fL (81-99); Mean Platelet Vol. 9.1 fl (6.2-12.0); Monocyte# 1.47 X10^3/uL; Monocyte% 13.3 % (0-10); NRBC Flagged by Analyzer 0.2 % (0-5); Neutrophil # 6.43 X10^3/uL (2.7-7.7); Neutrophil % 58.2 % (47-70); Platelet Count 410 K/mm3 (150-450); RBC Distribution Width CV 14.8 % (11.6-14.6); RBC Distribution Width SD 54.4 fl (35.1-43.9); Red Blood Count 2.76 M/mm3 (4.2-5.4)
[2021-04-20] MEDS: Pantoprazole Sodium 20 MG Tablet PO (06:11)
[2021-04-20] MEDS: Enoxaparin 40 MG/0.4 ML Syringe SC (06:12)
[2021-04-20] MEDS: Lidocaine 5% Patch 2 PATCH TOPICAL (06:13)
[2021-04-20] MEDS: Senna/Docusate Sodium 1 Tablet 2 TABLET PO ×2 (06:16→17:52)
[2021-04-20] MEDS: Polyethylene Glycol 3350 17 GM PACKET PO (06:16)
[2021-04-20] MEDS: Cholecalciferol (VIT D3) 25 MCG TABLET (1,000 UNITS) 50 MCG PO (06:16)
[2021-04-20] MEDS: Nystatin Powder 15gm Bottle 1 APPLIC TOPICAL ×2 (06:24→17:54)
[2021-04-20 06:27] LABS: Anion Gap 7 (5-15); BUN 15 mg/dL (7-18); BUN/Creat Ratio 20.1 RATIO (10-20); Chloride 106 mmol/L (98-107); Creatinine, Serum 0.75 mg/dL (0.55-1.02); EST Glomerular Filtration Rate 78 mL/min (>60); Est Glom Filt Rate - Afr Amer 95 mL/min (>60); Estimated Creatinine Clearance 34.02 ml/min; Glucose 112 mg/dL (74-106); Potassium 3.6 mmol/L (3.5-5.1); Sodium Level 140 mmol/L (136-145)
[2021-04-20] MEDS: Calcium Carb/Vitamin D 1 TABLET Tablet PO (09:03)
[2021-04-20] MEDS: Tuberculin,Purif.prot.deriv. 50 TU/ML Vial 0.1 ML ID (10:25)
--- NOTE | 2021-04-20 10:56 | CASEMGMT ---
Social Work See attached assessment for complete details. Assessment completed with patient daughter, Chichi as patient is only oriented to self. Ronalda reports that there are concerns with patient returning to living with Chichi. Chichi reports that family is meeting tonight to discuss plan B and to already have a list of nursing homes in the area. Ronalda reports that patient will be able to afford fpc. Chichi with no further questions. Chichi reports that patient is a DNR-CC and that patient is vaccinated for COVID-19. Ronalda to come in to sign for DNR-CC and will bring in patient vaccination card. Nursing staff updated. Will continue to follow. Sheila Obrien MSW, BAR
--- NOTE | 2021-04-20 14:56 | PCM.PN.RX ---
Progress Note - Pharmacy Subjective: TCU ADMISSION Objective: Allergies azithromycin Allergy (Verified 07/13/20 02:20) Swelling duloxetine [From Cymbalta] Allergy (Verified 07/13/20 02:20) PT UNABLE TO RESPOND-NEEDS F/U penicillin G Allergy (Verified 07/13/20 02:20) Swelling pregabalin Allergy (Verified 07/13/20 02:20) PT UNABLE TO RESPOND-NEEDS F/U sulfamethoxazole [From Bactrim] Allergy (Verified 07/13/20 02:20) Rash trimethoprim [From Bactrim] Allergy (Verified 07/13/20 02:20) Rash vaccine adjuvant system, AS01B liposomal [From Shingrix (PF)] Allergy (Verified 07/13/20 02:20) Rash varicella-zoster virus glycoprotein E, recombinant [From Shingrix (PF)] Allergy (Verified 07/13/20 02:20) Rash prednisone Adverse Reaction (Verified 07/13/20 02:20) PT UNABLE TO RESPOND-NEEDS F/U Current Medications Generic Name Dose Route Start Last Admin Trade Name Freq PRN Reason Stop Dose Admin Acetaminophen 1,000 mg 04/19/21 21:44 Acetaminophen 500 Mg Tablet PO Q6H PRN PRN Pain Score 1-5 Bisacodyl 10 mg 04/19/21 21:44 Bisacodyl 5 Mg Tablet PO DAILY PRN Constipation Calcium/Vitamin D 1 tablet 04/20/21 08:00 04/20/21 09:03 Calcium Carb/Vitamin D 1 Tablet Tablet PO 1 tablet 0800 JAZMIN Administration Cholecalciferol 50 mcg 04/20/21 06:00 04/20/21 06:16 Cholecalciferol (Vit D3) 25 Mcg Tablet (1,000 Units) PO 50 mcg DAILY JAZMIN Administration Donepezil HCl 5 mg 04/19/21 22:00 04/19/21 21:46 Donepezil Hcl 5 Mg Tablet PO 5 mg QHS JAZMIN Administration Enoxaparin Sodium 40 mg 04/20/21 06:00 04/20/21 06:12 Enoxaparin 40 Mg/0.4 Ml Syringe SC 40 mg DAILY JAZMIN Administration Lidocaine 2 patch 04/20/21 06:00 04/20/21 06:13 Lidocaine 5% Patch TOPICAL 2 patch DAILY JAZMIN Administration Protocol Nystatin 1 applic 04/20/21 06:00 04/20/21 06:24 Nystatin Powder 15gm Bottle TOPICAL 1 applic BID JAZMIN Administration Protocol Oxycodone HCl 5 mg 04/19/21 21:46 Oxycodone 5 Mg Tablet PO Q4H PRN PRN Pain Score 5-10 Pantoprazole Sodium 20 mg 04/20/21 06:00 04/20/21 06:11 Pantoprazole Sodium 20 Mg Tablet PO 20 mg DAILY JAZMIN Administration Polyethylene Glycol 17 gm 04/20/21 06:00 04/20/21 06:16 Polyethylene Glycol 3350 17 Gm Packet PO 17 gm DAILY JAZMIN Administration Senna/Docusate Sodium 2 tablet 04/19/21 21:45 04/20/21 06:16 Senna/Docusate Sodium 1 Tablet PO 2 tablet BID JAZMIN Administration Tuberculin PPD 0.1 ml 04/27/21 10:00 Tuberculin,Purif.Prot.Deriv. 50 Tu/Ml Vial ID 04/27/21 10:01 X1 ONE Problem List (Last Reviewed 04/19/21 @ 21:[address] Alek Saab MD) Insomnia (Acute) Fecal impaction of colon (Acute) Appetite loss (Acute) Urinary tract infection (Acute) Debility (Acute) Fall (Acute) Closed right hip fracture (Acute) Alzheimer disease (Chronic) GERD (gastroesophageal reflux disease) (Chronic) Vitamin D deficiency (Chronic) Vital Signs Temp Pulse Resp BP Pulse Ox 98.4 F 81 17 140/55 H 95 04/19/21 16:29 04/20/21 05:00 04/19/21 16:29 04/20/21 05:00 04/19/21 16:29 Oxygen Delivery Method Room Air Weight: 67.132 kg Body Mass Index (BMI) 26.2 Sodium 140 mmol/L (136-145) 04/20/21 05:15 Potassium 3.6 mmol/L (3.5-5.1) 04/20/21 05:15 Chloride 106 mmol/L (98-107) 04/20/21 05:15 Carbon Dioxide 27.0 mmol/L (21.0-32.0) 04/20/21 05:15 Anion Gap 7 (5-15) 04/20/21 05:15 BUN 15 mg/dL (7-18) 04/20/21 05:15 Creatinine 0.75 mg/dL (0.55-1.02) 04/20/21 05:15 Est GFR (MDRD) Af Amer 95 mL/min (>60) 04/20/21 05:15 Est GFR (MDRD) Non-Af 78 mL/min (>60) 04/20/21 05:15 BUN/Creatinine Ratio 20.1 RATIO (10-20) H 04/20/21 05:15 Glucose 112 mg/dL (74-106) H 04/20/21 05:15 Assessment/Plan: 1. Pain: Lidocaine Patch 2 patches topically daily, Tylenol 1000mg PO Q6h PRN Pain 1-5, Oxycodone 5mg PO Q4h PRN Pain 5-10. Please continue to monitor for increased/decreased pain, local site reactions where patches applied, and PRN medication usage. 2. Alzheimer Disease: Aricept 5mg PO QHS. Please continue to monitor for medication effectiveness, vivid dreams/nightmares, progression of disease. 3. GERD: Protonix 20mg PO Daily. Please continue to monitor for GERD flare-ups. Please encourage non-pharmacologic treatments as well to minimize exacerbations. 4. General Wellness: Os-Franky +D 1 tab PO Daily, Vitamin d3 50mcg PO Daily. Please continue to monitor. 5. DVT Prophylaxis: Lovenox 40mg SC Daily. Please continue to monitor CrCl (if CrCl < 30mL/min, dose will need adjusted, current CrCl = 34mL/min), S/S bleeding/bruising. Psychotropic Medications: None Unnecessary Medications: None Bowel Regimen: Miralax 17g PO Daily, Senna/Docusate 2 tab PO BID, Dulcolax 10mg PO Daily PRN. Please continue to monitor for increased/decreased S/S constipation and/or diarrhea, PRN medication usage. Date of Note:: 04/20/21
[2021-04-20 15:01] VITALS: BP 111/56; PULSE 77; RESP 16; TEMP 37; O2SAT 92
--- NOTE | 2021-04-20 16:20 | CHAPLAIN ---
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 Operator ___ Other (describe below) Sacrament/Intervention _x__ Active listening ___ Anointing ___ Episcopalian ___ Bereavement ___ Communion ___ Skylar exploration ___ _x__ Life review _x__ Prayer ___ Reconciliation ___ Sacrament of Sick _x__ Supportive presence ___ Wedding ___ Other (describe below) Pastoral Comments RN recommended visit to patient; pt was napping but easily was awakened by her name; pt is welcoming of information security director; pt comments reveal that she believes she is now in [place] near her home; pt does know that she fell and broke her hip/leg; pt remembers what hinduism she is a member of and that it is a good hinduism; pt is pleasant and welcomes a prayer; pt talks during the prayer as well;
[2021-04-20 19:55] VITALS: PULSE 98; RESP 16; O2SAT 95
[2021-04-20] MEDS: Acetaminophen 500 MG Tablet 1000 MG PO (20:21)
[2021-04-20] MEDS: Donepezil HCl 5 MG Tablet PO (20:21)
[2021-04-21 05:00] VITALS: BP 132/67; PULSE 68
[2021-04-21] MEDS: Nystatin Powder 15gm Bottle 1 APPLIC TOPICAL ×2 (05:54→17:12)
[2021-04-21] MEDS: Lidocaine 5% Patch 2 PATCH TOPICAL (05:54)
[2021-04-21] MEDS: Enoxaparin 40 MG/0.4 ML Syringe SC (05:55)
[2021-04-21] MEDS: Polyethylene Glycol 3350 17 GM PACKET PO (05:55)
[2021-04-21] MEDS: Pantoprazole Sodium 20 MG Tablet PO (05:59)
[2021-04-21] MEDS: Senna/Docusate Sodium 1 Tablet 2 TABLET PO (05:59)
[2021-04-21] MEDS: Cholecalciferol (VIT D3) 25 MCG TABLET (1,000 UNITS) 50 MCG PO (06:00)
[2021-04-21] MEDS: Calcium Carb/Vitamin D 1 TABLET Tablet PO (09:00)
[2021-04-21] MEDS: Acetaminophen 500 MG Tablet 1000 MG PO (10:50)
[2021-04-21 12:09] VITALS: BP 128/76; PULSE 78; RESP 16; TEMP 36.6; O2SAT 95
--- NOTE | 2021-04-21 16:02 | CASEMGMT ---
Social Work Phone call to pt dgt informing that continued stay granted with NRD 04/27 and anticipated d/c on 05/08. Chichi states she does not think she can care for pt at home and is requesting ECF and private duty list. VAUGHN emailed this information to Chichi. VAUGHN to continue to follow. JOSÉ MANUEL Chappell
[2021-04-21] MEDS: Donepezil HCl 5 MG Tablet PO (20:48)
[2021-04-21] MEDS: Menthol/Lanolin/Calamine/Znox 113 GM Tube 1 APPLIC TOPICAL (20:48)
[2021-04-21] MEDS: oxyCODONE 5 MG Tablet PO (23:51)
[2021-04-22] MEDS: oxyCODONE 5 MG Tablet PO ×4 (04:04→20:16)
[2021-04-22] MEDS: Pantoprazole Sodium 20 MG Tablet PO (04:06)
[2021-04-22] MEDS: Polyethylene Glycol 3350 17 GM PACKET PO (04:06)
[2021-04-22] MEDS: Nystatin Powder 15gm Bottle 1 APPLIC TOPICAL ×2 (04:06→16:07)
[2021-04-22] MEDS: Senna/Docusate Sodium 1 Tablet 2 TABLET PO (04:07)
[2021-04-22] MEDS: Cholecalciferol (VIT D3) 25 MCG TABLET (1,000 UNITS) 50 MCG PO (04:08)
[2021-04-22] MEDS: Enoxaparin 40 MG/0.4 ML Syringe SC (04:08)
[2021-04-22] MEDS: Menthol/Lanolin/Calamine/Znox 113 GM Tube 1 APPLIC TOPICAL ×2 (04:09→20:18)
[2021-04-22] MEDS: Lidocaine 5% Patch 2 PATCH TOPICAL (04:10)
[2021-04-22 08:36] LABS: Hematocrit 31.3 % (37-47); Hemoglobin 9.9 g/dL (12.0-15.0)
[2021-04-22] MEDS: Calcium Carb/Vitamin D 1 TABLET Tablet PO (09:01)
[2021-04-22 16:00] VITALS: BP 116/62; PULSE 88; RESP 18; TEMP 36.8; O2SAT 95
[2021-04-22] MEDS: Donepezil HCl 5 MG Tablet PO (20:20)
[2021-04-23] MEDS: oxyCODONE 5 MG Tablet PO ×4 (00:35→17:04)
[2021-04-23] MEDS: Lidocaine 5% Patch 2 PATCH TOPICAL (04:44)
[2021-04-23] MEDS: Senna/Docusate Sodium 1 Tablet 2 TABLET PO ×2 (04:47→17:04)
[2021-04-23] MEDS: Cholecalciferol (VIT D3) 25 MCG TABLET (1,000 UNITS) 50 MCG PO (04:47)
[2021-04-23] MEDS: Pantoprazole Sodium 20 MG Tablet PO (04:48)
[2021-04-23] MEDS: Menthol/Lanolin/Calamine/Znox 113 GM Tube 1 APPLIC TOPICAL ×2 (04:49→20:49)
[2021-04-23] MEDS: Enoxaparin 40 MG/0.4 ML Syringe SC (04:49)
[2021-04-23] MEDS: Nystatin Powder 15gm Bottle 1 APPLIC TOPICAL ×2 (04:50→17:03)
[2021-04-23] MEDS: Polyethylene Glycol 3350 17 GM PACKET PO (04:50)
[2021-04-23] MEDS: Calcium Carb/Vitamin D 1 TABLET Tablet PO (08:37)
[2021-04-23] MEDS: Acetaminophen 500 MG Tablet 1000 MG PO ×2 (08:40→15:42)
[2021-04-23 13:55] VITALS: BP 112/53; PULSE 76; RESP 16; TEMP 36.2; O2SAT 96
--- NOTE | 2021-04-23 15:36 | NURSING ---
Daughter Chichi here, code status discussed. DNRCC- purple wrist band applied.
--- NOTE | 2021-04-23 15:42 | NURSING ---
pt noted to have red rash & itchy where lidoderm patches were on back, areas cleansed with soap & water, dried thoroughly. Note left for dr goldman
[2021-04-23 19:52] VITALS: PULSE 79; RESP 14; O2SAT 98
[2021-04-23] MEDS: Donepezil HCl 5 MG Tablet PO (20:49)
--- NOTE | 2021-04-23 22:16 | NURSING ---
notified via telephone of lidoderm patches causing red/itchy skin. Lidoderm patches discontinued
[2021-04-24] MEDS: Menthol/Lanolin/Calamine/Znox 113 GM Tube 1 APPLIC TOPICAL ×2 (04:36→20:36)
[2021-04-24] MEDS: Acetaminophen 500 MG Tablet 1000 MG PO ×2 (04:37→13:09)
[2021-04-24] MEDS: Polyethylene Glycol 3350 17 GM PACKET PO (04:37)
[2021-04-24] MEDS: Senna/Docusate Sodium 1 Tablet 2 TABLET PO ×2 (04:41→16:55)
[2021-04-24] MEDS: Enoxaparin 40 MG/0.4 ML Syringe SC (04:41)
[2021-04-24] MEDS: Pantoprazole Sodium 20 MG Tablet PO (04:41)
[2021-04-24] MEDS: Nystatin Powder 15gm Bottle 1 APPLIC TOPICAL ×2 (04:42→16:54)
[2021-04-24] MEDS: Cholecalciferol (VIT D3) 25 MCG TABLET (1,000 UNITS) 50 MCG PO (04:42)
[2021-04-24] MEDS: Calcium Carb/Vitamin D 1 TABLET Tablet PO (08:43)
[2021-04-24] MEDS: oxyCODONE 5 MG Tablet PO (13:09)
[2021-04-24 14:09] VITALS: PULSE 76; RESP 18; O2SAT 97
[2021-04-24 15:37] VITALS: BP 111/57; PULSE 76; RESP 18; TEMP 36.3; O2SAT 97
[2021-04-24] MEDS: Donepezil HCl 5 MG Tablet PO (20:36)
[2021-04-25] MEDS: Menthol/Lanolin/Calamine/Znox 113 GM Tube 1 APPLIC TOPICAL ×2 (04:01→20:35)
[2021-04-25] MEDS: Enoxaparin 40 MG/0.4 ML Syringe SC (04:02)
[2021-04-25] MEDS: Pantoprazole Sodium 20 MG Tablet PO (04:03)
[2021-04-25] MEDS: Polyethylene Glycol 3350 17 GM PACKET PO (04:03)
[2021-04-25] MEDS: Senna/Docusate Sodium 1 Tablet 2 TABLET PO ×2 (04:03→16:44)
[2021-04-25] MEDS: Nystatin Powder 15gm Bottle 1 APPLIC TOPICAL ×2 (04:03→16:42)
[2021-04-25] MEDS: Cholecalciferol (VIT D3) 25 MCG TABLET (1,000 UNITS) 50 MCG PO (04:04)
[2021-04-25] MEDS: Calcium Carb/Vitamin D 1 TABLET Tablet PO (08:02)
--- NOTE | 2021-04-25 09:44 | CASEMGMT ---
Social Work Brief interview for mental status (BIMS) and resident mood interview (PHQ-9) completed on this day. Sheila DICKINSON, LIBERTYS
[2021-04-25] MEDS: oxyCODONE 5 MG Tablet PO (11:21)
[2021-04-25] MEDS: Acetaminophen 500 MG Tablet 1000 MG PO ×2 (11:22→20:34)
[2021-04-25 15:37] VITALS: BP 126/55; PULSE 70; RESP 16; TEMP 36.9; O2SAT 95
--- NOTE | 2021-04-25 16:21 | NURSING ---
Patient unable to say whether or not she wants the Prevnar 13 vaccine. Left message for daughter to call back and give ok for immunization.
[2021-04-25 20:19] VITALS: PULSE 68; RESP 16; O2SAT 95
[2021-04-25] MEDS: Donepezil HCl 5 MG Tablet PO (20:36)
[2021-04-26] MEDS: Menthol/Lanolin/Calamine/Znox 113 GM Tube 1 APPLIC TOPICAL ×2 (05:47→20:00)
[2021-04-26] MEDS: Senna/Docusate Sodium 1 Tablet 2 TABLET PO ×2 (05:55→18:02)
[2021-04-26] MEDS: Enoxaparin 40 MG/0.4 ML Syringe SC (05:55)
[2021-04-26] MEDS: Pantoprazole Sodium 20 MG Tablet PO (05:55)
[2021-04-26] MEDS: Nystatin Powder 15gm Bottle 1 APPLIC TOPICAL ×2 (05:55→17:58)
[2021-04-26] MEDS: Polyethylene Glycol 3350 17 GM PACKET PO (06:04)
[2021-04-26] MEDS: Cholecalciferol (VIT D3) 25 MCG TABLET (1,000 UNITS) 50 MCG PO (06:18)
[2021-04-26] MEDS: Calcium Carb/Vitamin D 1 TABLET Tablet PO (07:28)
[2021-04-26] MEDS: Acetaminophen 500 MG Tablet 1000 MG PO ×2 (10:32→18:01)
--- NOTE | 2021-04-26 10:35 | CASEMGMT ---
Social Work Plan of care meeting held. Patient present. Patient daughter present via speaker phone. Patient to continue with further care and treatment on the Transitional Care Unit. Patient with next insurance update due on 04/27/2021 with projected discharge by insurance to be 05/08/2021. Will continue to follow. Sheila DICKINSON, LIBERTYS
[2021-04-26 16:00] VITALS: BP 108/48; PULSE 79; RESP 15; TEMP 36.8; O2SAT 95
[2021-04-26] MEDS: Donepezil HCl 5 MG Tablet PO (20:46)
[2021-04-26] MEDS: oxyCODONE 5 MG Tablet PO (20:46)
[2021-04-27] MEDS: Polyethylene Glycol 3350 17 GM PACKET PO (05:02)
[2021-04-27] MEDS: Enoxaparin 40 MG/0.4 ML Syringe SC (05:03)
[2021-04-27] MEDS: Pantoprazole Sodium 20 MG Tablet PO (05:04)
[2021-04-27] MEDS: Cholecalciferol (VIT D3) 25 MCG TABLET (1,000 UNITS) 50 MCG PO (05:04)
[2021-04-27] MEDS: Senna/Docusate Sodium 1 Tablet 2 TABLET PO (05:04)
[2021-04-27] MEDS: Menthol/Lanolin/Calamine/Znox 113 GM Tube 1 APPLIC TOPICAL ×2 (05:07→20:59)
[2021-04-27] MEDS: Nystatin Powder 15gm Bottle 1 APPLIC TOPICAL ×2 (05:08→15:55)
[2021-04-27 06:32] LABS: Anion Gap 7 (5-15); BUN 21 mg/dL (7-18); Calcium,Total 10.1 mg/dL (8.5-10.1); Chloride 107 mmol/L (98-107); Creatinine, Serum 0.91 mg/dL (0.55-1.02); EST Glomerular Filtration Rate 62 mL/min (>60); Est Glom Filt Rate - Afr Amer 75 mL/min (>60); Estimated Creatinine Clearance 37.39 ml/min; Glucose 114 mg/dL (74-106); Potassium 3.5 mmol/L (3.5-5.1); Sodium Level 141 mmol/L (136-145)
[2021-04-27 06:35] LABS: Absolute Lymphocyte Count 2.58 X10^3/uL (0.83-4.51); Basophil# 0.04 X10^3/uL; Basophil% 0.5 % (0-1); Eosinophil# 0.57 X10^3/uL; Eosinophils% 7.1 % (0-5); Hematocrit 33.9 % (37-47); Lymphocyte # 2.58 X10^3/ul (0.83-4.51); Lymphocyte % 32.2 % (19-41); Mean Corp Hgb Conc 29.5 g/dL (32-36); Mean Corpuscular Hgb 33.4 pg (27.0-32.0); Mean Corpuscular Volume 113.4 fL (81-99); Mean Platelet Vol. 9.2 fl (6.2-12.0); Monocyte# 0.84 X10^3/uL; Monocyte% 10.5 % (0-10); NRBC Flagged by Analyzer 0 % (0-5); Neutrophil # 3.95 X10^3/uL (2.7-7.7); Neutrophil % 49.2 % (47-70); Platelet Count 447 K/mm3 (150-450); RBC Distribution Width CV 15.6 % (11.6-14.6); RBC Distribution Width SD 64.1 fl (35.1-43.9); Red Blood Count 2.99 M/mm3 (4.2-5.4)
[2021-04-27] MEDS: Calcium Carb/Vitamin D 1 TABLET Tablet PO (08:19)
--- NOTE | 2021-04-27 10:15 | CASEMGMT ---
Addendum entered by Albertina Spivey 04/28/21 16:39: [facility] not [facility] availability. Left messages with the other SNFs. Will continue to follow. Original Note: Social Work Spoke with patient's daughter to notify insurance approved additional days with NRD 05/05 and to anticipate [facility]. Dtr provided SNF choices. Referrals made to [facility] [place]. Will continue to follow. ALOK BarrazaW
[2021-04-27 15:38] VITALS: BP 125/51; PULSE 74; RESP 14; TEMP 36.4; O2SAT 96
[2021-04-27 15:40] VITALS: PULSE 74; RESP 14; O2SAT 96
[2021-04-27] MEDS: Tuberculin,Purif.prot.deriv. 50 TU/ML Vial 0.1 ML ID (15:56)
--- NOTE | 2021-04-27 18:02 | NURSING ---
Patient walking with walker on her own. Staff alerted and patient placed in chair in position of comfort.
[2021-04-27] MEDS: Donepezil HCl 5 MG Tablet PO (20:59)
[2021-04-27] MEDS: Acetaminophen 500 MG Tablet 1000 MG PO (20:59)
[2021-04-28] MEDS: Menthol/Lanolin/Calamine/Znox 113 GM Tube 1 APPLIC TOPICAL ×2 (05:40→20:05)
[2021-04-28] MEDS: Senna/Docusate Sodium 1 Tablet 2 TABLET PO ×2 (05:41→16:40)
[2021-04-28] MEDS: Enoxaparin 40 MG/0.4 ML Syringe SC (05:41)
[2021-04-28] MEDS: Polyethylene Glycol 3350 17 GM PACKET PO (05:41)
[2021-04-28] MEDS: Cholecalciferol (VIT D3) 25 MCG TABLET (1,000 UNITS) 50 MCG PO (05:41)
[2021-04-28] MEDS: Pantoprazole Sodium 20 MG Tablet PO (05:42)
[2021-04-28] MEDS: Nystatin Powder 15gm Bottle 1 APPLIC TOPICAL ×2 (05:42→16:40)
[2021-04-28] MEDS: Calcium Carb/Vitamin D 1 TABLET Tablet PO (08:53)
[2021-04-28] MEDS: Acetaminophen 500 MG Tablet 1000 MG PO (15:44)
[2021-04-28 16:00] VITALS: BP 114/62; PULSE 74; RESP 18; TEMP 37; O2SAT 94
[2021-04-28] MEDS: oxyCODONE 5 MG Tablet PO (20:06)
[2021-04-28] MEDS: Donepezil HCl 5 MG Tablet PO (20:06)
[2021-04-29] MEDS: Senna/Docusate Sodium 1 Tablet 2 TABLET PO ×2 (05:29→16:07)
[2021-04-29] MEDS: Polyethylene Glycol 3350 17 GM PACKET PO (05:29)
[2021-04-29] MEDS: Enoxaparin 40 MG/0.4 ML Syringe SC (05:29)
[2021-04-29] MEDS: Cholecalciferol (VIT D3) 25 MCG TABLET (1,000 UNITS) 50 MCG PO (05:30)
[2021-04-29] MEDS: Pantoprazole Sodium 20 MG Tablet PO (05:30)
[2021-04-29] MEDS: Menthol/Lanolin/Calamine/Znox 113 GM Tube 1 APPLIC TOPICAL ×2 (05:30→20:26)
[2021-04-29] MEDS: Nystatin Powder 15gm Bottle 1 APPLIC TOPICAL ×2 (05:31→16:07)
[2021-04-29] MEDS: Calcium Carb/Vitamin D 1 TABLET Tablet PO (08:14)
[2021-04-29 15:13] VITALS: BP 120/55; PULSE 72; RESP 14; TEMP 36.8; O2SAT 94
[2021-04-29] MEDS: Donepezil HCl 5 MG Tablet PO (20:26)
[2021-04-29] MEDS: Acetaminophen 500 MG Tablet 1000 MG PO (20:30)
[2021-04-29 20:40] VITALS: PULSE 68; RESP 16; O2SAT 96
[2021-04-30] MEDS: Enoxaparin 40 MG/0.4 ML Syringe SC (05:31)
[2021-04-30] MEDS: Menthol/Lanolin/Calamine/Znox 113 GM Tube 1 APPLIC TOPICAL ×2 (05:31→22:17)
[2021-04-30] MEDS: Polyethylene Glycol 3350 17 GM PACKET PO (05:32)
[2021-04-30] MEDS: Senna/Docusate Sodium 1 Tablet 2 TABLET PO ×2 (05:33→16:50)
[2021-04-30] MEDS: Cholecalciferol (VIT D3) 25 MCG TABLET (1,000 UNITS) 50 MCG PO (05:33)
[2021-04-30] MEDS: Nystatin Powder 15gm Bottle 1 APPLIC TOPICAL ×2 (05:34→16:51)
[2021-04-30] MEDS: Pantoprazole Sodium 20 MG Tablet PO (05:34)
[2021-04-30] MEDS: oxyCODONE 5 MG Tablet PO (05:41)
[2021-04-30] MEDS: Calcium Carb/Vitamin D 1 TABLET Tablet PO (07:30)
[2021-04-30 12:38] VITALS: BP 124/51; PULSE 68; RESP 16; TEMP 36.6; O2SAT 97
--- NOTE | 2021-04-30 16:29 | NURSING ---
Patient alarm going off RN entered room, patient sliding out of recliner. Patient sideways on legs of the recliner, noted to be sitting on right hip. Patient had stabilized position with right hand on floor and nicolette feet on floor. RN able to assist patient back into recliner seat. Patient denied pain. RN reminded patient to call for assistance. Patient verbalized understanding. Call light next to patient in recliner.
[2021-04-30] MEDS: Donepezil HCl 5 MG Tablet PO (22:16)
[2021-04-30 22:24] VITALS: PULSE 68; RESP 16; O2SAT 95
[2021-05-01] MEDS: Senna/Docusate Sodium 1 Tablet 2 TABLET PO ×2 (04:33→16:18)
[2021-05-01] MEDS: Cholecalciferol (VIT D3) 25 MCG TABLET (1,000 UNITS) 50 MCG PO (04:33)
[2021-05-01] MEDS: Polyethylene Glycol 3350 17 GM PACKET PO (04:34)
[2021-05-01] MEDS: Pantoprazole Sodium 20 MG Tablet PO (04:34)
[2021-05-01] MEDS: Menthol/Lanolin/Calamine/Znox 113 GM Tube 1 APPLIC TOPICAL ×2 (04:35→21:08)
[2021-05-01] MEDS: Enoxaparin 40 MG/0.4 ML Syringe SC (04:36)
[2021-05-01] MEDS: Nystatin Powder 15gm Bottle 1 APPLIC TOPICAL ×2 (04:36→16:18)
[2021-05-01] MEDS: Calcium Carb/Vitamin D 1 TABLET Tablet PO (08:34)
[2021-05-01 16:41] VITALS: BP 112/50; PULSE 62; RESP 16; TEMP 36.7; O2SAT 94
--- NOTE | 2021-05-01 16:56 | CASEMGMT ---
Addendum entered by Albertina Spivey 05/02/21 16:12: Spoke with dtr and she is unable to afford [facility]. She will contact [facility] for pricing and notify this worker if there are any other SNFs to refer to. Will continue to follow. Addendum entered by Albertina Spivey 05/02/21 12:35: [facility] unable to accept. [facility] can accept. Contacted dtr to update. First choice is [facility], second is [facility]. Dtr to wait from [facility] to decide on placement. Will continue to follow Addendum entered by Albertina Spivey 05/02/21 11:57: Left messages with [facility] and [facility] [place]. Original Note: Social Work Received call from [facility] to inquire about needing to complete assessment on pt to determine SNF vs AL need and wanting to contact dtr for finances. Gave permission and stated the goal is SNF. [facility] to follow up with this worker after conversation. Spoke with [facility] - still reviewing. Could not reach habitat management coordinator at [facility] [place]. Will continue to attempt. ALOK Barraza
[2021-05-01 20:21] VITALS: PULSE 18; RESP 18; O2SAT 96
[2021-05-01] MEDS: Donepezil HCl 5 MG Tablet PO (21:07)
[2021-05-01] MEDS: Mirtazapine 15 MG Tablet 7.5 MG PO (21:12)
[2021-05-02] MEDS: Polyethylene Glycol 3350 17 GM PACKET PO (05:36)
[2021-05-02] MEDS: Enoxaparin 40 MG/0.4 ML Syringe SC (05:37)
[2021-05-02] MEDS: Senna/Docusate Sodium 1 Tablet 2 TABLET PO ×2 (05:39→17:54)
[2021-05-02] MEDS: Cholecalciferol (VIT D3) 25 MCG TABLET (1,000 UNITS) 50 MCG PO (05:39)
[2021-05-02] MEDS: Pantoprazole Sodium 20 MG Tablet PO (05:39)
[2021-05-02] MEDS: Menthol/Lanolin/Calamine/Znox 113 GM Tube 1 APPLIC TOPICAL ×2 (05:39→22:03)
[2021-05-02] MEDS: oxyCODONE 5 MG Tablet PO (05:42)
[2021-05-02] MEDS: Nystatin Powder 15gm Bottle 1 APPLIC TOPICAL ×2 (05:42→17:54)
[2021-05-02] MEDS: Calcium Carb/Vitamin D 1 TABLET Tablet PO (08:08)
--- NOTE | 2021-05-02 08:35 | MDS.RN ---
Information for the mds was obtained from review of the clinical record, interview of resident, staff, and direct observation of resident's care.
[2021-05-02 10:00] VITALS: PULSE 79; RESP 18; O2SAT 96
[2021-05-02 14:22] VITALS: BP 118/65; PULSE 77; RESP 16; TEMP 36.1; O2SAT 96
[2021-05-02] MEDS: Donepezil HCl 5 MG Tablet PO (22:03)
[2021-05-02] MEDS: Mirtazapine 15 MG Tablet 7.5 MG PO (22:03)
[2021-05-03] MEDS: Acetaminophen 500 MG Tablet 1000 MG PO (00:22)
[2021-05-03 05:26] VITALS: BP 121/65; PULSE 72; RESP 16; TEMP 36.3; O2SAT 99
[2021-05-03] MEDS: Menthol/Lanolin/Calamine/Znox 113 GM Tube 1 APPLIC TOPICAL ×2 (05:27→22:36)
[2021-05-03] MEDS: Nystatin Powder 15gm Bottle 1 APPLIC TOPICAL ×2 (05:27→17:21)
[2021-05-03] MEDS: Enoxaparin 40 MG/0.4 ML Syringe SC (05:28)
[2021-05-03] MEDS: Polyethylene Glycol 3350 17 GM PACKET PO (05:29)
[2021-05-03] MEDS: Cholecalciferol (VIT D3) 25 MCG TABLET (1,000 UNITS) 50 MCG PO (05:30)
[2021-05-03] MEDS: Pantoprazole Sodium 20 MG Tablet PO (05:30)
[2021-05-03] MEDS: Senna/Docusate Sodium 1 Tablet 2 TABLET PO ×2 (05:30→17:20)
[2021-05-03] MEDS: Calcium Carb/Vitamin D 1 TABLET Tablet PO (08:02)
[2021-05-03 15:35] VITALS: BP 117/47; PULSE 74; RESP 14; TEMP 36.8; O2SAT 95
[2021-05-03 22:30] VITALS: PULSE 77; RESP 16; O2SAT 96
[2021-05-03] MEDS: Donepezil HCl 5 MG Tablet PO (22:35)
[2021-05-03] MEDS: Mirtazapine 15 MG Tablet 7.5 MG PO (22:35)
[2021-05-04 06:01] LABS: Absolute Lymphocyte Count 2.85 X10^3/uL (0.83-4.51); Absolute Neutrophil Count 2.8 X10^3/uL (2.0-7.7); Basophil# 0.03 X10^3/uL; Basophil% 0.4 % (0-1); Eosinophil# 0.52 X10^3/uL; Eosinophils% 7.5 % (0-5); Hematocrit 32.8 % (37-47); Hemoglobin 10.4 g/dL (12.0-15.0); Lymphocyte # 2.85 X10^3/ul (0.83-4.51); Lymphocyte % 40.9 % (19-41); Mean Corp Hgb Conc 31.7 g/dL (32-36); Mean Corpuscular Hgb 33.5 pg (27.0-32.0); Mean Corpuscular Volume 105.8 fL (81-99); Mean Platelet Vol. 9.3 fl (6.2-12.0); Monocyte# 0.79 X10^3/uL; Monocyte% 11.3 % (0-10); NRBC Flagged by Analyzer 0 % (0-5); Neutrophil # 2.76 X10^3/uL (2.7-7.7); Neutrophil % 39.6 % (47-70); Platelet Count 366 K/mm3 (150-450); RBC Distribution Width CV 14.4 % (11.6-14.6); RBC Distribution Width SD 56.1 fl (35.1-43.9)
[2021-05-04 06:29] LABS: Anion Gap 6 (5-15); BUN 13 mg/dL (7-18); Calcium,Total 9.7 mg/dL (8.5-10.1); Chloride 107 mmol/L (98-107); Creatinine, Serum 0.72 mg/dL (0.55-1.02); EST Glomerular Filtration Rate 82 mL/min (>60); Est Glom Filt Rate - Afr Amer 99 mL/min (>60); Estimated Creatinine Clearance 34.02 ml/min; Glucose 96 mg/dL (74-106); Potassium 3.6 mmol/L (3.5-5.1); Sodium Level 140 mmol/L (136-145)
[2021-05-04] MEDS: Polyethylene Glycol 3350 17 GM PACKET PO (06:55)
[2021-05-04] MEDS: Pantoprazole Sodium 20 MG Tablet PO (06:56)
[2021-05-04] MEDS: Enoxaparin 40 MG/0.4 ML Syringe SC (06:56)
[2021-05-04] MEDS: Cholecalciferol (VIT D3) 25 MCG TABLET (1,000 UNITS) 50 MCG PO (06:57)
[2021-05-04] MEDS: Senna/Docusate Sodium 1 Tablet 2 TABLET PO ×2 (06:57→16:22)
[2021-05-04] MEDS: Nystatin Powder 15gm Bottle 1 APPLIC TOPICAL ×2 (06:57→16:22)
[2021-05-04] MEDS: Menthol/Lanolin/Calamine/Znox 113 GM Tube 1 APPLIC TOPICAL ×2 (06:57→19:54)
[2021-05-04] MEDS: Calcium Carb/Vitamin D 1 TABLET Tablet PO (08:33)
[2021-05-04 10:33] VITALS: PULSE 80; RESP 16; O2SAT 96
[2021-05-04 15:48] VITALS: BP 119/51; PULSE 80; RESP 16; TEMP 36.9; O2SAT 96
[2021-05-04] MEDS: Acetaminophen 500 MG Tablet 1000 MG PO (19:53)
[2021-05-04] MEDS: Mirtazapine 15 MG Tablet 7.5 MG PO (19:53)
[2021-05-04] MEDS: Donepezil HCl 5 MG Tablet PO (19:54)
[2021-05-05] MEDS: Polyethylene Glycol 3350 17 GM PACKET PO (05:58)
[2021-05-05] MEDS: Senna/Docusate Sodium 1 Tablet 2 TABLET PO ×2 (05:59→17:07)
[2021-05-05] MEDS: Pantoprazole Sodium 20 MG Tablet PO (05:59)
[2021-05-05] MEDS: Cholecalciferol (VIT D3) 25 MCG TABLET (1,000 UNITS) 50 MCG PO (05:59)
[2021-05-05] MEDS: Nystatin Powder 15gm Bottle 1 APPLIC TOPICAL ×2 (06:01→17:07)
[2021-05-05] MEDS: Enoxaparin 40 MG/0.4 ML Syringe SC (06:01)
[2021-05-05] MEDS: Menthol/Lanolin/Calamine/Znox 113 GM Tube 1 APPLIC TOPICAL ×2 (06:02→20:29)
[2021-05-05] MEDS: Calcium Carb/Vitamin D 1 TABLET Tablet PO (07:31)
--- NOTE | 2021-05-05 14:28 | CASEMGMT ---
Addendum entered by Albertina Spivey 05/05/21 16:00: [facility] - [facility] but unsure if they will have a bed 05/08, but to call first thing that morning. Updated dtr - dtr would like pt to DC to [facility] - would like to pay privately for 05/08 and transfer 05/09. Encouraged dtr to contact [facility] to ask any questions then can provide payment to [facility] Residential Property Tax Appraiser's office. Dtr appreciative of assistance. IDT notified. PAS Completed. Plan: DC to [facility] 05/09 intermediate Original Note: Social Work Insurance issued LCD 05/07, [place] 9[place]. Notified dtr and agreeable. Followed up with [facility] as that is first choice - reviewing. [facility] can still accept, second choice. Dtr to transport pt at [place]. Plan: DC to SNF, intermediate, 05/08 ALOK BarrazaW
--- NOTE | 2021-05-05 15:03 | PCM.DC.SUM ---
Providers Date of Admission: 04/19/21 Primary Care Physician: Dr. Alek Saab MD Reason For Visit: RIGHT FEMUR FRACTURE Diagnosis Discharge Diagnosis (1) Debility: Status: Acute Code(s): R53.81 - Other malaise (2) Fall: Status: Acute Code(s): W19.XXXA - Unspecified fall, initial encounter (3) Closed right hip fracture: Status: Acute Code(s): S72.001A - Fracture of unspecified part of neck of right femur, initial encounter for closed fracture (4) GERD (gastroesophageal reflux disease): Status: Chronic Code(s): K21.9 - Gastro-esophageal reflux disease without esophagitis (5) Vitamin D deficiency: Status: Chronic Code(s): E55.9 - Vitamin D deficiency, unspecified (6) Alzheimer disease: Status: Chronic Code(s): G30.9 - Alzheimer's disease, unspecified; F02.80 - Dementia in other diseases classified elsewhere without behavioral disturbance (7) Insomnia: Status: Acute Code(s): G47.00 - Insomnia, unspecified (8) Fecal impaction of colon: Status: Acute Code(s): K56.41 - Fecal impaction (9) Appetite loss: Status: Acute Code(s): R63.0 - Anorexia (10) Urinary tract infection: Status: Acute Code(s): N39.0 - Urinary tract infection, site not specified Medications at Discharge Home Medications allopurinol 300 mg PO DAILY 07/13/20 cholecalciferol (vitamin D3) 2,000 unit PO DAILY 07/13/20 donepezil 5 mg PO QHS 07/13/20 ezetimibe 10 mg PO DAILY 07/13/20 ftxfuyxarevl-ffu-sqmj-FA-vit K 1 ea PO DAILY 07/13/20 omeprazole 20 mg PO QODAY 07/13/20 acetaminophen 1,000 mg PO Q6H PRN tab 07/27/20 lidocaine 2 patch TOPICAL DAILY #30 patch 07/27/20 calcium carbonate-vitamin D3 [Calcium 500 + D (D3)] 1 tab PO DAILY 04/19/21 cefdinir 300 mg PO Q12 04/19/21 cefdinir 300 mg PO Q12H 04/19/21 cefdinir 300 mg PO Q12H 04/19/21 docusate sodium 100 mg PO DAILY 04/19/21 enoxaparin [Lovenox] 40 mg SUBCUT DAILY 04/19/21 lidocaine 2 patch TOPICAL DAILY 04/19/21 lidocaine 2 patch TOPICAL DAILY 04/19/21 lisinopril 5 mg PO QODAY 04/19/21 menthol-zinc oxide 1 applic TOPICAL 0600,2200 04/19/21 mirtazapine 7.5 mg PO QHS 04/19/21 mirtazapine 7.5 mg PO QHS 04/19/21 mirtazapine 7.5 mg PO QHS 04/19/21 oxycodone 5 mg PO Q4H PRN 04/19/21 polyethylene glycol 3350 [Miralax] 17 g PO DAILY 04/19/21 promethazine 25 mg PO Q12H PRN 04/19/21 Hospital Course Operations - (ORIF right hip.) Procedures None Summary of Care Provided Minutes Spent on Discharge: 35 Hospital Course: 85 year old female with below past medical history hospitalized for right interprosthetic distal femur fracture, underwent ORIF right hip 04/12/2021, admitted to TCU with debility, here for rehabilitation, strengthening, prior to disposition determination. [facility]charge [facility] 05/08/20[facility], intermediate level of care. Physical Exam Const alert and oriented x3 General Appearance: cooperative HEENT normocephalic Eyes PERRL and EOMs intact bilaterally Neck supple, no JVD and no carotid bruits Resp normal respiratory effort, normal air movement and clear to auscultation bilaterally Cardio regular rate and regular rhythm GI normal to inspection, nondistended, normoactive bowel sounds, non-tender and non-distended Extremity normal capillary refill General Extremity: Negative for edema Skin no rashes or lesions noted General Skin Exam: no breakdown Psych affect normal Appearance: appropriate Weight / BMI Weight Weight: 56.416 kg Body Mass Index (BMI) 26.2 ABG / Lab / Microbiology Data Result Diagrams: 05/04/21 05:40 05/04/21 05:40 D/C Instructions Discharge Diet: No restrictions Discharge Activity: Return to Normal Activity, May Shower and Use Walker Weight Bearing Status: Weight bearing as tolerated Call your doctor if you observe: Fever of 101 or Higher, Inability to urinate, Inability to have a bowel movement, Shortness of breath, Dizziness, Fainting spells, Swelling in the ankles, Chest pain and Uncontrolled pain Additional Instructions: Discharge to [facility] 05/08/2021, intermediate level of care. Please Follow Up With: Dr. Alexander (ortho) When: As scheduled. Meaningful Use Info Meaningful Use Diagnoses (Choose all that apply): None applicable Discharge Plan Admission Admit Date/Time: 04/19/21 13:35 Primary Reason for Your Visit: Debility. Attending Provider: Alek Saab Chi Primary Care Provider: Alek Saab Chi Instructions Additional Instructions / Restrictions: Discharge to [facility] 05/08/2021, intermediate level of care. Discharge Orders/Prescriptions Prescriptions: No Action donepezil 10 MG tablet 5 mg PO QHS RF: 0 omeprazole 20 MG capsule 20 mg PO QODAY RF: 0 allopurinol 300 MG tablet 300 mg PO DAILY RF: 0 zqagupmzhvge-brn-ksld-FA-vit K 1 EACH tablet 1 ea PO DAILY RF: 0 cholecalciferol (vitamin D3) 2,000 UNIT capsule 2,000 unit PO DAILY RF: 0 ezetimibe 10 MG tablet 10 mg PO DAILY RF: 0 acetaminophen 500 MG tablet 1,000 mg PO Q6H PRN (Reason: Pain Score 1-5) RF: 0 lidocaine 1 PATCH patch 2 patch TOPICAL DAILY Qty: 30 RF: 0 polyethylene glycol 3350 [Miralax] 17 gram Powder In Packet 17 g PO DAILY RF: 0 promethazine 25 mg Tablet 25 mg PO Q12H PRN (Reason: Nausea) RF: 0 oxycodone 5 mg Capsule 5 mg PO Q4H PRN (Reason: Pain) RF: 0 lisinopril 5 mg Tablet 5 mg PO QODAY RF: 0 docusate sodium 100 mg Tablet 100 mg PO DAILY RF: 0 enoxaparin [Lovenox] 40 mg/0.4 mL Syringe 40 mg SUBCUT DAILY RF: 0 calcium carbonate-vitamin D3 [Calcium 500 + D (D3)] 500 mg(1,250mg) -125 unit Tablet 1 tab PO DAILY RF: 0 lidocaine 1 PATCH adhesive patch,medicated 2 patch TOPICAL DAILY RF: 0 lidocaine 1 PATCH adhesive patch,medicated 2 patch TOPICAL DAILY RF: 0 mirtazapine 15 MG tablet 7.5 mg PO QHS RF: 0 cefdinir 300 MG capsule 300 mg PO Q12 RF: 0 cefdinir 300 MG capsule 300 mg PO Q12H RF: 0 cefdinir 300 MG capsule 300 mg PO Q12H RF: 0 mirtazapine 7.5 MG tablet 7.5 mg PO QHS RF: 0 mirtazapine 7.5 MG tablet 7.5 mg PO QHS RF: 0 menthol-zinc oxide 1 APPLIC ointment 1 applic TOPICAL 0600,2200 RF: 0 Referrals / Follow Up: Alek Saab Chi, MD [Primary Care Provider] - Disposition Disposition (needs filled in before D/C Order can be placed): NonSkilled NH/Intermed Care
[2021-05-05 15:04] VITALS: BP 118/63; PULSE 76; RESP 16; TEMP 36.8; O2SAT 96
--- NOTE | 2021-05-05 15:08 | TREXTCAR_ITS ---
Diet 04/19/21 16:33 Diet: Regular - General Diet Comments: NO chicken Routine Orders/Code Status Suppository Type: Dulcolax 10mg Suppository Frequency: Daily PRN [facility] right flank: Wound Type: scattered pink spots Dressing Change: [employer] SOC[employer] WORKER back: Wound Type: pink areas Dressing Change: [employer] WORKER left riojas: Wound Type: scab right hip: Wound Type: Surgical Incision Dressing Change: [employer] WORKER right abdominal fold: Wound Type: pink spot Dressing Change: nystatin powder right knee: Wound Type: Surgical Incision Dressing Change: TONYA Therapies Weight Bearing: Weight bearing as tolerated Extremity Affected:: Bilateral Lower Problem/Diagnosis (1) Debility: Status: Acute (2) Fall: Status: Acute (3) Closed right hip fracture: Status: Acute (4) GERD (gastroesophageal reflux disease): Status: Chronic (5) Vitamin D deficiency: Status: Chronic (6) Alzheimer disease: Status: Chronic (7) Insomnia: Status: Acute (8) Fecal impaction of colon: Status: Acute (9) Appetite loss: Status: Acute (10) Urinary tract infection: Status: Acute Allergies/Procedures Done in Hospital Allergies azithromycin Allergy (Verified 07/13/20 02:20) Swelling duloxetine [From Cymbalta] Allergy (Verified 07/13/20 02:20) PT UNABLE TO RESPOND-NEEDS F/U penicillin G Allergy (Verified 07/13/20 02:20) Swelling pregabalin Allergy (Verified 07/13/20 02:20) PT UNABLE TO RESPOND-NEEDS F/U sulfamethoxazole [From Bactrim] Allergy (Verified 07/13/20 02:20) Rash trimethoprim [From Bactrim] Allergy (Verified 07/13/20 02:20) Rash vaccine adjuvant system, AS01B liposomal [From Shingrix (PF)] Allergy (Verified 07/13/20 02:20) Rash varicella-zoster virus glycoprotein E, recombinant [From Shingrix (PF)] Allergy (Verified 07/13/20 02:20) Rash prednisone Adverse Reaction (Verified 07/13/20 02:20) PT UNABLE TO RESPOND-NEEDS F/U Procedures: - (ORIF right hip.) Type of Care/Length of Stay Estimated LOS: More Than 30 Days Type of Care Needed: Intermediate Rehab Potential: Fair Prognosis: Fair Additional Orders/Day of Discharge Additional Orders: Part B therapies Day of Discharge: 05/08/21 Dietary and Speech Recommendations Dietitian Recommendations/Changes: Will continue Regular diet Will continue ensure enlive 120 ml 4x/day with medpass d/t variable po intake at meals Follow Up Care Please Follow Up With: Dr. Alexander (ortho) When: 2-3 weeks Please Follow Up With: Dr. Bola Cunningham When: 1 week after d/c from TCU Please Follow Up With: [facility] When: 2 months Discharge Plan Admission Admit Date/Time: 04/19/21 13:35 Primary Reason for Your Visit: Debility. Attending Provider: Alek Saab Chi Primary Care Provider: Alek Saab Chi Instructions Additional Instructions / Restrictions: Discharge to [facility] 05/08/2021, intermediate level of care. Discharge Orders/Prescriptions Prescriptions: No Action donepezil 10 MG tablet 5 mg PO QHS RF: 0 omeprazole 20 MG capsule 20 mg PO QODAY RF: 0 allopurinol 300 MG tablet 300 mg PO DAILY RF: 0 bfynlvuieoki-tze-trwy-FA-vit K 1 EACH tablet 1 ea PO DAILY RF: 0 cholecalciferol (vitamin D3) 2,000 UNIT capsule 2,000 unit PO DAILY RF: 0 ezetimibe 10 MG tablet 10 mg PO DAILY RF: 0 acetaminophen 500 MG tablet 1,000 mg PO Q6H PRN (Reason: Pain Score 1-5) RF: 0 lidocaine 1 PATCH patch 2 patch TOPICAL DAILY Qty: 30 RF: 0 polyethylene glycol 3350 [Miralax] 17 gram Powder In Packet 17 g PO DAILY RF: 0 promethazine 25 mg Tablet 25 mg PO Q12H PRN (Reason: Nausea) RF: 0 oxycodone 5 mg Capsule 5 mg PO Q4H PRN (Reason: Pain) RF: 0 lisinopril 5 mg Tablet 5 mg PO QODAY RF: 0 docusate sodium 100 mg Tablet 100 mg PO DAILY RF: 0 enoxaparin [Lovenox] 40 mg/0.4 mL Syringe 40 mg SUBCUT DAILY RF: 0 calcium carbonate-vitamin D3 [Calcium 500 + D (D3)] 500 mg(1,250mg) -125 unit Tablet 1 tab PO DAILY RF: 0 lidocaine 1 PATCH adhesive patch,medicated 2 patch TOPICAL DAILY RF: 0 lidocaine 1 PATCH adhesive patch,medicated 2 patch TOPICAL DAILY RF: 0 mirtazapine 15 MG tablet 7.5 mg PO QHS RF: 0 cefdinir 300 MG capsule 300 mg PO Q12 RF: 0 cefdinir 300 MG capsule 300 mg PO Q12H RF: 0 cefdinir 300 MG capsule 300 mg PO Q12H RF: 0 mirtazapine 7.5 MG tablet 7.5 mg PO QHS RF: 0 mirtazapine 7.5 MG tablet 7.5 mg PO QHS RF: 0 menthol-zinc oxide 1 APPLIC ointment 1 applic TOPICAL 0600,2200 RF: 0 Referrals / Follow Up: Alek Saab Chi, MD [Primary Care Provider] - Disposition Disposition (needs filled in before D/C Order can be placed): NonSkilled NH/Intermed Care
[2021-05-05] MEDS: Donepezil HCl 5 MG Tablet PO (20:28)
[2021-05-05] MEDS: Mirtazapine 15 MG Tablet 7.5 MG PO (20:28)
[2021-05-05] MEDS: Acetaminophen 500 MG Tablet 1000 MG PO (23:00)
[2021-05-06] MEDS: Polyethylene Glycol 3350 17 GM PACKET PO (05:26)
[2021-05-06] MEDS: Nystatin Powder 15gm Bottle 1 APPLIC TOPICAL ×2 (05:26→16:42)
[2021-05-06] MEDS: Cholecalciferol (VIT D3) 25 MCG TABLET (1,000 UNITS) 50 MCG PO (05:26)
[2021-05-06] MEDS: Pantoprazole Sodium 20 MG Tablet PO (05:27)
[2021-05-06] MEDS: Senna/Docusate Sodium 1 Tablet 2 TABLET PO ×2 (05:27→16:43)
[2021-05-06] MEDS: Enoxaparin 40 MG/0.4 ML Syringe SC (05:28)
[2021-05-06] MEDS: Menthol/Lanolin/Calamine/Znox 113 GM Tube 1 APPLIC TOPICAL ×2 (05:30→22:15)
[2021-05-06] MEDS: Calcium Carb/Vitamin D 1 TABLET Tablet PO (08:47)
--- NOTE | 2021-05-06 10:18 | NURSING ---
Administered pill whole in apple sauce, per family request. pt struggled to swallow pill. This nurse offered to crush pills from now on. pt agreeable to this.
[2021-05-06 14:40] VITALS: BP 129/60; PULSE 75; RESP 20; TEMP 36.3; O2SAT 95
[2021-05-06] MEDS: Acetaminophen 500 MG Tablet 1000 MG PO ×2 (16:45→22:46)
[2021-05-06] MEDS: Mirtazapine 15 MG Tablet 7.5 MG PO (22:16)
[2021-05-06] MEDS: Donepezil HCl 5 MG Tablet PO (22:16)
[2021-05-07] MEDS: Polyethylene Glycol 3350 17 GM PACKET PO (05:08)
[2021-05-07] MEDS: Menthol/Lanolin/Calamine/Znox 113 GM Tube 1 APPLIC TOPICAL ×2 (05:08→22:10)
[2021-05-07] MEDS: Enoxaparin 40 MG/0.4 ML Syringe SC (05:08)
[2021-05-07] MEDS: Pantoprazole Sodium 20 MG Tablet PO (05:09)
[2021-05-07] MEDS: Senna/Docusate Sodium 1 Tablet 2 TABLET PO ×2 (05:09→16:34)
[2021-05-07] MEDS: Cholecalciferol (VIT D3) 25 MCG TABLET (1,000 UNITS) 50 MCG PO (05:09)
[2021-05-07] MEDS: Nystatin Powder 15gm Bottle 1 APPLIC TOPICAL ×2 (05:10→16:34)
[2021-05-07 05:17] VITALS: BP 141/77; PULSE 84; RESP 16; TEMP 36.5; O2SAT 95
[2021-05-07] MEDS: Calcium Carb/Vitamin D 1 TABLET Tablet PO (08:24)
[2021-05-07 14:45] VITALS: BP 111/61; PULSE 78; RESP 18; TEMP 36.7; O2SAT 95
[2021-05-07] MEDS: Mirtazapine 15 MG Tablet 7.5 MG PO (21:59)
[2021-05-07] MEDS: Donepezil HCl 5 MG Tablet PO (21:59)
[2021-05-07] MEDS: Acetaminophen 500 MG Tablet 1000 MG PO (22:00)
[2021-05-08] MEDS: Enoxaparin 40 MG/0.4 ML Syringe SC (05:09)
[2021-05-08] MEDS: Menthol/Lanolin/Calamine/Znox 113 GM Tube 1 APPLIC TOPICAL ×2 (05:10→20:47)
[2021-05-08] MEDS: Pantoprazole Sodium 20 MG Tablet PO (05:10)
[2021-05-08] MEDS: Polyethylene Glycol 3350 17 GM PACKET PO (05:11)
[2021-05-08] MEDS: Cholecalciferol (VIT D3) 25 MCG TABLET (1,000 UNITS) 50 MCG PO (05:11)
[2021-05-08] MEDS: Senna/Docusate Sodium 1 Tablet 2 TABLET PO ×2 (05:12→16:45)
[2021-05-08] MEDS: Nystatin Powder 15gm Bottle 1 APPLIC TOPICAL ×2 (05:12→16:45)
[2021-05-08] MEDS: Calcium Carb/Vitamin D 1 TABLET Tablet PO (07:49)
[2021-05-08] MEDS: Acetaminophen 500 MG Tablet 1000 MG PO (10:31)
--- NOTE | 2021-05-08 14:27 | CASEMGMT ---
Social Work Received voicemail from dtr that she would like to wait on pt discharge. Family would like to revisit [facility] choice, then [facility] second choice. Updated [facility]. Spoke with [facility] updated clinicals. Will continue to follow. Albertina Spivey, ALOK WELFARE VISITOR
[2021-05-08 14:30] VITALS: BP 96/57; PULSE 82; RESP 14; TEMP 36.6; O2SAT 96
[2021-05-08] MEDS: Mirtazapine 15 MG Tablet 7.5 MG PO (20:47)
[2021-05-08] MEDS: Donepezil HCl 5 MG Tablet PO (20:47)
[2021-05-09] MEDS: Acetaminophen 500 MG Tablet 1000 MG PO (01:21)
[2021-05-09] MEDS: Cholecalciferol (VIT D3) 25 MCG TABLET (1,000 UNITS) 50 MCG PO (05:54)
[2021-05-09] MEDS: Senna/Docusate Sodium 1 Tablet 2 TABLET PO ×2 (05:54→17:27)
[2021-05-09] MEDS: Enoxaparin 40 MG/0.4 ML Syringe SC (05:54)
[2021-05-09] MEDS: Polyethylene Glycol 3350 17 GM PACKET PO (05:54)
[2021-05-09] MEDS: Pantoprazole Sodium 20 MG Tablet PO (05:59)
[2021-05-09] MEDS: Nystatin Powder 15gm Bottle 1 APPLIC TOPICAL ×2 (06:01→17:26)
[2021-05-09] MEDS: Menthol/Lanolin/Calamine/Znox 113 GM Tube 1 APPLIC TOPICAL ×2 (06:01→22:38)
[2021-05-09] MEDS: Calcium Carb/Vitamin D 1 TABLET Tablet PO (07:58)
[2021-05-09 14:18] VITALS: PULSE 68; RESP 16; O2SAT 95
[2021-05-09 20:11] VITALS: BP 114/68; PULSE 72; RESP 16; TEMP 36.7; O2SAT 97
[2021-05-09] MEDS: Donepezil HCl 5 MG Tablet PO (22:38)
[2021-05-09] MEDS: Mirtazapine 15 MG Tablet 7.5 MG PO (22:38)
[2021-05-10] MEDS: Nystatin Powder 15gm Bottle 1 APPLIC TOPICAL ×2 (06:49→17:00)
[2021-05-10] MEDS: Menthol/Lanolin/Calamine/Znox 113 GM Tube 1 APPLIC TOPICAL ×2 (06:49→21:55)
[2021-05-10] MEDS: Polyethylene Glycol 3350 17 GM PACKET PO (06:49)
[2021-05-10] MEDS: Cholecalciferol (VIT D3) 25 MCG TABLET (1,000 UNITS) 50 MCG PO (06:49)
[2021-05-10] MEDS: Pantoprazole Sodium 20 MG Tablet PO (06:49)
[2021-05-10] MEDS: Enoxaparin 40 MG/0.4 ML Syringe SC (06:49)
[2021-05-10] MEDS: Senna/Docusate Sodium 1 Tablet 2 TABLET PO ×2 (06:50→16:57)
[2021-05-10] MEDS: Calcium Carb/Vitamin D 1 TABLET Tablet PO (09:18)
--- NOTE | 2021-05-10 15:23 | CASEMGMT ---
Addendum entered by Albertina Spivey 05/10/21 16:56: Spoke with dtr and family agreeable to [facility]. Family would like pt to DC prior to dr's appt 05/15. IDT agreeable. Dtr to transport. Plan: DC 05/12 [facility] Original Note: Social Work [facility] cannot accept pt at this time d/t no beds in secure unit, but is placed on waitlist. Spoke with dtr to inquire about next option. Dtr stated she needs to speak with family and will notify SW. Will continue to follow. Albertina Spivey, ALOK DIRECTOR OF MATERIALS
[2021-05-10 16:08] VITALS: BP 115/68; PULSE 82; RESP 19; TEMP 37; O2SAT 96
[2021-05-10] MEDS: Donepezil HCl 5 MG Tablet PO (21:55)
[2021-05-10] MEDS: Mirtazapine 15 MG Tablet 7.5 MG PO (21:55)
[2021-05-11] MEDS: Enoxaparin 40 MG/0.4 ML Syringe SC (04:52)
[2021-05-11] MEDS: Menthol/Lanolin/Calamine/Znox 113 GM Tube 1 APPLIC TOPICAL ×2 (04:53→20:51)
[2021-05-11] MEDS: Polyethylene Glycol 3350 17 GM PACKET PO (04:53)
[2021-05-11] MEDS: Cholecalciferol (VIT D3) 25 MCG TABLET (1,000 UNITS) 50 MCG PO (04:53)
[2021-05-11] MEDS: Nystatin Powder 15gm Bottle 1 APPLIC TOPICAL ×2 (04:53→17:27)
[2021-05-11] MEDS: Senna/Docusate Sodium 1 Tablet 2 TABLET PO ×2 (04:53→17:27)
[2021-05-11] MEDS: Pantoprazole Sodium 20 MG Tablet PO (04:53)
[2021-05-11 05:51] LABS: Absolute Lymphocyte Count 3.34 X10^3/uL (0.83-4.51); Absolute Neutrophil Count 2.6 X10^3/uL (2.0-7.7); Basophil# 0.04 X10^3/uL; Basophil% 0.6 % (0-1); Eosinophil# 0.42 X10^3/uL; Eosinophils% 5.8 % (0-5); Hematocrit 38.2 % (37-47); Hemoglobin 12.1 g/dL (12.0-15.0); Lymphocyte # 3.34 X10^3/ul (0.83-4.51); Lymphocyte % 46.3 % (19-41); Mean Corp Hgb Conc 31.7 g/dL (32-36); Mean Corpuscular Hgb 33.4 pg (27.0-32.0); Mean Corpuscular Volume 105.5 fL (81-99); Mean Platelet Vol. 9.3 fl (6.2-12.0); Monocyte# 0.82 X10^3/uL; Monocyte% 11.4 % (0-10); NRBC Flagged by Analyzer 0 % (0-5); Neutrophil # 2.57 X10^3/uL (2.7-7.7); Neutrophil % 35.6 % (47-70); Platelet Count 335 K/mm3 (150-450); RBC Distribution Width CV 13.6 % (11.6-14.6); RBC Distribution Width SD 53.6 fl (35.1-43.9); Red Blood Count 3.62 M/mm3 (4.2-5.4); White Blood Count 7.2 K/mm3 (4.4-11.0)
[2021-05-11 06:15] LABS: Anion Gap 9 (5-15); BUN 22 mg/dL (7-18); BUN/Creat Ratio 22.3 RATIO (10-20); Calcium,Total 10.3 mg/dL (8.5-10.1); Chloride 106 mmol/L (98-107); Creatinine, Serum 0.99 mg/dL (0.55-1.02); EST Glomerular Filtration Rate 57 mL/min (>60); Est Glom Filt Rate - Afr Amer 69 mL/min (>60); Estimated Creatinine Clearance 34.37 ml/min; Glucose 123 mg/dL (74-106); Potassium 3.4 mmol/L (3.5-5.1); Sodium Level 142 mmol/L (136-145)
[2021-05-11] MEDS: Calcium Carb/Vitamin D 1 TABLET Tablet PO (08:14)
[2021-05-11] MEDS: oxyCODONE 5 MG Tablet PO (08:18)
[2021-05-11] MEDS: Potassium Chloride Oral Tablet 20 MEQ 40 MEQ PO (08:19)
--- NOTE | 2021-05-11 12:51 | NURSING ---
COVID swab obtained per order. Patient tolerated procedure fair. Sent to lab at 1235.
--- NOTE | 2021-05-11 14:45 | MDS.RN ---
Pain interview for [facility] 05/12/21 completed.
[2021-05-11 16:45] VITALS: BP 127/66; PULSE 91; RESP 16; TEMP 36.6; O2SAT 93
[2021-05-11 16:47] VITALS: PULSE 91; RESP 16; O2SAT 93
[2021-05-11] MEDS: Donepezil HCl 5 MG Tablet PO (20:50)
[2021-05-11] MEDS: Mirtazapine 15 MG Tablet 7.5 MG PO (20:50)
[2021-05-12 04:39] VITALS: PULSE 88; RESP 18; O2SAT 98
[2021-05-12] MEDS: Pantoprazole Sodium 20 MG Tablet PO (04:53)
[2021-05-12] MEDS: Polyethylene Glycol 3350 17 GM PACKET PO (04:53)
[2021-05-12] MEDS: Cholecalciferol (VIT D3) 25 MCG TABLET (1,000 UNITS) 50 MCG PO (04:53)
[2021-05-12] MEDS: Menthol/Lanolin/Calamine/Znox 113 GM Tube 1 APPLIC TOPICAL ×2 (04:53→19:40)
[2021-05-12] MEDS: Senna/Docusate Sodium 1 Tablet 2 TABLET PO ×2 (04:53→18:16)
[2021-05-12] MEDS: Enoxaparin 40 MG/0.4 ML Syringe SC (04:53)
[2021-05-12] MEDS: Nystatin Powder 15gm Bottle 1 APPLIC TOPICAL ×2 (04:54→18:16)
[2021-05-12 06:14] LABS: Anion Gap 8 (5-15); BUN 23 mg/dL (7-18); Calcium,Total 10.4 mg/dL (8.5-10.1); Chloride 108 mmol/L (98-107); Creatinine, Serum 0.96 mg/dL (0.55-1.02); EST Glomerular Filtration Rate 59 mL/min (>60); Est Glom Filt Rate - Afr Amer 71 mL/min (>60); Estimated Creatinine Clearance 35.44 ml/min; Glucose 126 mg/dL (74-106); Potassium 3.7 mmol/L (3.5-5.1); Sodium Level 143 mmol/L (136-145)
[2021-05-12] MEDS: Calcium Carb/Vitamin D 1 TABLET Tablet PO (08:38)
--- NOTE | 2021-05-12 12:32 | CASEMGMT ---
Addendum entered by Albertina Spivey 05/12/21 13:52: Dtr contacted SW and family would like W. Updated other SNFs. Dtr touring [facility]. Awaiting final outcome. Unsure of DC date at this time. Will continue to follow. Original Note: Social Work Received call from dtr at 0730 that [facility] cannot accept pt as they do not have any beds available. Contacted [facility] to confirm - received return call from [facility] 1040 confirming. Inquired to dtr other SNF options. Dtr would like to revisit [facility], refer to [facility], [facility], [facility] [place] and to receive pricing. Will continue to follow. Albertina Spivey, ALOK ACW
--- NOTE | 2021-05-12 14:02 | NURSING ---
Taken off unit to go to ortho appointment. Daughter to take to appointment.
[2021-05-12 15:12] VITALS: BP 121/64; PULSE 77; RESP 16; TEMP 36.7; O2SAT 97
[2021-05-12] MEDS: oxyCODONE 5 MG Tablet PO (19:40)
[2021-05-12] MEDS: Donepezil HCl 5 MG Tablet PO (19:40)
[2021-05-12] MEDS: Mirtazapine 15 MG Tablet 7.5 MG PO (19:41)
[2021-05-13] MEDS: Pantoprazole Sodium 20 MG Tablet PO (04:20)
[2021-05-13] MEDS: Enoxaparin 40 MG/0.4 ML Syringe SC (04:21)
[2021-05-13] MEDS: Polyethylene Glycol 3350 17 GM PACKET PO (04:22)
[2021-05-13] MEDS: Cholecalciferol (VIT D3) 25 MCG TABLET (1,000 UNITS) 50 MCG PO (04:24)
[2021-05-13] MEDS: Menthol/Lanolin/Calamine/Znox 113 GM Tube 1 APPLIC TOPICAL ×2 (04:24→20:38)
[2021-05-13] MEDS: Senna/Docusate Sodium 1 Tablet 2 TABLET PO ×2 (04:24→16:57)
[2021-05-13] MEDS: Nystatin Powder 15gm Bottle 1 APPLIC TOPICAL ×2 (04:25→16:57)
[2021-05-13] MEDS: Calcium Carb/Vitamin D 1 TABLET Tablet PO (09:33)
[2021-05-13 15:25] VITALS: BP 116/54; PULSE 83; RESP 16; TEMP 36.4; O2SAT 94
[2021-05-13] MEDS: Acetaminophen 500 MG Tablet 1000 MG PO (17:01)
[2021-05-13 20:30] VITALS: PULSE 85; RESP 16; O2SAT 97
[2021-05-13] MEDS: Mirtazapine 15 MG Tablet 7.5 MG PO (20:38)
[2021-05-13] MEDS: Donepezil HCl 5 MG Tablet PO (20:39)
[2021-05-14] MEDS: Menthol/Lanolin/Calamine/Znox 113 GM Tube 1 APPLIC TOPICAL ×2 (05:00→20:51)
[2021-05-14] MEDS: Senna/Docusate Sodium 1 Tablet 2 TABLET PO ×2 (05:01→16:30)
[2021-05-14] MEDS: Cholecalciferol (VIT D3) 25 MCG TABLET (1,000 UNITS) 50 MCG PO (05:01)
[2021-05-14] MEDS: Polyethylene Glycol 3350 17 GM PACKET PO (05:01)
[2021-05-14] MEDS: Pantoprazole Sodium 20 MG Tablet PO (05:01)
[2021-05-14] MEDS: Nystatin Powder 15gm Bottle 1 APPLIC TOPICAL ×2 (05:02→16:30)
[2021-05-14] MEDS: Enoxaparin 40 MG/0.4 ML Syringe SC (05:02)
--- NOTE | 2021-05-14 09:57 | NURSING ---
DR CASTELLANOS UPDATED ON CALCIUM LEVEL OF 10.4, NEW ORDER TO DC [facility].
[2021-05-14 16:00] VITALS: BP 126/74; PULSE 87; RESP 17; TEMP 36.6; O2SAT 95
[2021-05-14] MEDS: Mirtazapine 15 MG Tablet 7.5 MG PO (20:48)
[2021-05-14] MEDS: Donepezil HCl 5 MG Tablet PO (20:48)
[2021-05-15 02:35] VITALS: PULSE 93; RESP 14; O2SAT 96
[2021-05-15] MEDS: Menthol/Lanolin/Calamine/Znox 113 GM Tube 1 APPLIC TOPICAL ×2 (05:19→21:06)
[2021-05-15] MEDS: Polyethylene Glycol 3350 17 GM PACKET PO (05:19)
[2021-05-15] MEDS: Nystatin Powder 15gm Bottle 1 APPLIC TOPICAL ×2 (05:19→16:43)
[2021-05-15] MEDS: Senna/Docusate Sodium 1 Tablet 2 TABLET PO ×2 (05:20→16:40)
[2021-05-15] MEDS: Pantoprazole Sodium 20 MG Tablet PO (05:20)
[2021-05-15] MEDS: Enoxaparin 40 MG/0.4 ML Syringe SC (05:20)
[2021-05-15 05:25] VITALS: BP 120/69; PULSE 69
[2021-05-15] MEDS: Cholecalciferol (VIT D3) 25 MCG TABLET (1,000 UNITS) 50 MCG PO (05:51)
--- NOTE | 2021-05-15 10:15 | CASEMGMT ---
Addendum entered by Albertina Spivey 05/15/21 14:23: [facility] can accept. Dtr agreeable to DC 05/16. Dtr to transport 4 pm. Faxed paperwork to the [facility]. Plan: DC 05/16 to the [facility] Original Note: Social Work Received voicemail from dtr that she no longer wants pt to admit to [facility]. Notified [facility]. Dtr would like to pursue [facility]. Spoke with admissions and they are unsure they want to accept because pt would need Medicaid soon and would need to tx. Admissions to speak with dtr and notify this worker of outcome. Albertina Spivey, ALOK WOOD CREW SUPERVISOR
[2021-05-15 12:32] VITALS: PULSE 85; RESP 14; O2SAT 94
[2021-05-15 15:29] VITALS: BP 115/51; PULSE 85; RESP 14; TEMP 36.7; O2SAT 94
[2021-05-15] MEDS: Mirtazapine 15 MG Tablet 7.5 MG PO (21:05)
[2021-05-15] MEDS: Donepezil HCl 5 MG Tablet PO (21:06)
[2021-05-16] MEDS: Polyethylene Glycol 3350 17 GM PACKET PO (05:08)
[2021-05-16] MEDS: Enoxaparin 40 MG/0.4 ML Syringe SC (05:09)
[2021-05-16] MEDS: Cholecalciferol (VIT D3) 25 MCG TABLET (1,000 UNITS) 50 MCG PO (05:10)
[2021-05-16] MEDS: Nystatin Powder 15gm Bottle 1 APPLIC TOPICAL (05:10)
[2021-05-16] MEDS: Pantoprazole Sodium 20 MG Tablet PO (05:10)
[2021-05-16] MEDS: Senna/Docusate Sodium 1 Tablet 2 TABLET PO (05:10)
[2021-05-16] MEDS: Menthol/Lanolin/Calamine/Znox 113 GM Tube 1 APPLIC TOPICAL (05:10)
--- NOTE | 2021-05-16 06:55 | NURSING ---
Alarm sounds. Pt ambulated without assistance or a device from bed to sink. This nurse assisted pt to bathroom. VETERINARY X RAY OPERATOR in to assist w/ remainder of toileting hygiene and transfer.
[2021-05-16 16:44] VITALS: PULSE 85; RESP 14; O2SAT 97
[2021-05-16 16:52] VITALS: BP 119/50; PULSE 85; RESP 14; TEMP 36.7; O2SAT 97
[2021-05-16 20:01] VITALS: BP 119/50; PULSE 85; RESP 14; TEMP 36.7; O2SAT 97
== END 2021-05-16 17:00 | disposition intermediate care facility (04) | DRG 561 ==
PROVIDERS: Admitting Provider Family Medicine Geriatric Medicine; PCP Family Medicine Geriatric Medicine; Visit Provider Family Medicine Geriatric Medicine
DX: S72.001D Fracture of unspecified part of neck of right femur, subsequent encounter for closed fracture with routine healing (principal); W19.XXXD Unspecified fall, subsequent encounter; F02.80 Dementia in other diseases classified elsewhere, unspecified severity, without behavioral disturbance, psychotic disturbance, mood disturbance, and anxiety; G30.9 Alzheimer's disease, unspecified; K21.9 Gastro-esophageal reflux disease without esophagitis; E55.9 Vitamin D deficiency, unspecified; Z23 Encounter for immunization; Z79.899 Other long term (current) drug therapy
CPT/HCPCS: 36415; 80048; 85014; 85018; 85025; 87426; 87635; 92507; 92523; 97110; 97116; 97162; 97166; 97530; 97535; G0009; U0005; 90670; U0003

== ENCOUNTER → 2021-05-29 14:17 | Outpatient (CLI) | payer MEDICARE, SELFPAY ==
[2021-05-29 17:48] LABS: Absolute Lymphocyte Count 3.26 X10^3/uL (0.83-4.51); Absolute Neutrophil Count 5.4 X10^3/uL (2.0-7.7); Basophil# 0.04 X10^3/uL; Basophil% 0.4 % (0-1); Eosinophil# 0.29 X10^3/uL; Eosinophils% 2.9 % (0-5); Hemoglobin 13.8 g/dL (12.0-15.0); Lymphocyte # 3.26 X10^3/ul (0.83-4.51); Lymphocyte % 32.2 % (19-41); Mean Corp Hgb Conc 32.9 g/dL (32-36); Mean Corpuscular Hgb 33.4 pg (27.0-32.0); Mean Corpuscular Volume 101.7 fL (81-99); Mean Platelet Vol. 10.3 fl (6.2-12.0); Monocyte# 1.07 X10^3/uL; Monocyte% 10.6 % (0-10); NRBC Flagged by Analyzer 0 % (0-5); Neutrophil # 5.42 X10^3/uL (2.7-7.7); Neutrophil % 53.6 % (47-70); Platelet Count 362 K/mm3 (150-450); RBC Distribution Width CV 12.6 % (11.6-14.6); RBC Distribution Width SD 47.6 fl (35.1-43.9); Red Blood Count 4.13 M/mm3 (4.2-5.4); White Blood Count 10.1 K/mm3 (4.4-11.0)
[2021-05-29 18:03] LABS: Vitamin D,25 Hydroxy 46.5 ng/mL
[2021-05-29 18:09] LABS: ALB/GLOB Ratio 0.6 RATIO (0.9-2.4); AST(SGOT) 26 U/L (15-37); Alanine Aminotransfer ALT/SGPT 24 U/L (13-56); Albumin, Serum 3.4 g/dL (3.2-5.0); Alkaline Phosphatase 149 U/L (45-117); Anion Gap 11 (5-15); BUN 11 mg/dL (7-18); BUN/Creat Ratio 11.6 RATIO (10-20); Calcium,Total 10.3 mg/dL (8.5-10.1); Chloride 102 mmol/L (98-107); Creatinine, Serum 0.95 mg/dL (0.55-1.02); EST Glomerular Filtration Rate 59 mL/min (>60); Est Glom Filt Rate - Afr Amer 72 mL/min (>60); Globulin 5.3 g/dL (2.2-4.2); Glucose 123 mg/dL (74-106); Potassium 3.6 mmol/L (3.5-5.1); Protein, Total 8.7 g/dL (6.4-8.2); Sodium Level 139 mmol/L (136-145); Uric Acid 9.2 mg/dL (2.6-6.0)
== END ==
LOC: POLAB3 14:21
PROVIDERS: PCP Family Medicine Geriatric Medicine; Visit Provider Family Medicine Geriatric Medicine
DX: E55.9 Vitamin D deficiency, unspecified (principal); M10.9 Gout, unspecified; R53.83 Other fatigue
CPT/HCPCS: 36415; 80053; 82306; 84443; 84550; 85025